=== PATIENT | male | born 1960 | race Caucasian/White ===

== ENCOUNTER → 2019-10-02 00:01 | Outpatient (RCR) | payer MEDICARE, SELFPAY | LOC: WOUND 10:22 | PROVIDERS: Family Provider Family Medicine; Visit Provider Thoracic Surgery (Cardiothoracic Vascular Surgery) | DX: I96 Gangrene, not elsewhere classified (principal); L89.324 Pressure ulcer of left buttock, stage 4 ==

== ENCOUNTER 2019-11-27 13:03 | Outpatient (RCR) | payer MEDICARE, SELFPAY | END 2019-12-01 23:59 | disposition home or self-care (01) | LOC: WOUND 13:03 | PROVIDERS: Family Provider Family Medicine; PCP Family Medicine; Visit Provider Thoracic Surgery (Cardiothoracic Vascular Surgery) | DX: I96 Gangrene, not elsewhere classified (principal); L89.324 Pressure ulcer of left buttock, stage 4 | CPT/HCPCS: 11042 ==

== ENCOUNTER 2019-12-25 13:04 | Outpatient (RCR) | payer MEDICARE, SELFPAY | END 2020-01-01 23:59 | disposition home or self-care (01) | LOC: WOUND 13:04 | PROVIDERS: Family Provider Family Medicine; PCP Family Medicine; Visit Provider Thoracic Surgery (Cardiothoracic Vascular Surgery) | DX: L89.324 Pressure ulcer of left buttock, stage 4 (principal) | CPT/HCPCS: 11042 ==

== ENCOUNTER 2020-01-22 15:16 | Outpatient (RCR) | payer MEDICARE, SELFPAY | END 2020-01-31 23:59 | disposition home or self-care (01) | LOC: WOUND 15:16 | PROVIDERS: Family Provider Family Medicine; PCP Family Medicine; Visit Provider Thoracic Surgery (Cardiothoracic Vascular Surgery) | DX: L89.324 Pressure ulcer of left buttock, stage 4 (principal) | CPT/HCPCS: 11042; A6446 ==

== ENCOUNTER 2020-02-17 18:58 | Inpatient (IN) | payer MEDICARE, SELFPAY ==
[2020-02-17 19:04] VITALS: BP 97/66; PULSE 104; RESP 24; TEMP 37.7; O2SAT 97; BMI 34.0
--- NOTE | 2020-02-17 19:13 | XR_ITS ---
WS: [id number] Portable AP upright chest, 02/17/2020 Clinical Data: Fever Comparison: Portable chest, 01/02/2019. Findings: No nodules, masses or effusions are seen. The heart is normal. The pulmonary vascularity is not increased. No pneumonia or pneumothorax is seen. The patient is had a posterior fusion of the lo wer cervical spine and upper thoracic spine from C6 through T6 with bilateral pedicle screws and conn ecting rods. There is also a plate in the lateral left clavicle attached with multiple orthopedic scr ews. XR/XR chest 1V portable [id number] Impression: Negative for acute cardiopulmonary disease.
--- NOTE | 2020-02-17 19:27 | ED_ITS ---
HPI - Fever General: Chief Complaint: Fever Stated Complaint: AMS, Fever Time Seen by Provider: 02/17/20 19:13 History of Present Illness: HPI Narrative: Mr. Howard is a 59-year-old male who comes in complaining of feeling chilled and having a fever at home. He has associated abdominal pain. The patient is a poor historian secondary to pain and what is believed to be probable septic process. He denies headache, neck pain, chest pain, shortness of breath, cough but is unaware about lower extremity problems as he is a paraplegic. He is able to answer some questions but when he does not have the answers for some he becomes frustrated and states that he does not know the answers. There is no family with him to get a history from. Further information is taken from old charts. Review of Systems General: Reports: Other (ROS unobtainable other than as listed in HPI.) PFS ED PFSH: Medical History Chronic retention of urine History of recurrent UTIs Neurogenic bladder Paraplegia, complete Suprapubic catheter Surgical History S/P repair of hydrocele Family History Mother , AT AGE 85 Hypertension Father , AT AGE 74 LEUKEMIA Leukemia Social History Smoking and tobacco status: unknown if ever smoked Alcohol intake: never Adopted: No Caregiver/support person: No Lives independently: No Household members: family Marital status: Current occupational status: disabled Physical Exam Const: COMMON NORMALS: no acute distress, no limitations, healthy appearing and well nourished EXAM LIMITATIONS: no altered mental status GENERAL APPEARANCE: cooperative, well kempt and well developed HENMT: COMMON NORMALS: normocephalic, atraumatic, hearing grossly normal bilaterally, external ears normal, EAC's normal, Normal external nose present and moist oral mucous membranes HEAD & SCALP: normal to inspection, normocephalic and atraumatic FACE & SINUS: normal facial exam and face symmetric NOSE: Normal external nose present and Normal nares present EXTERNAL EAR: Yes external ears normal EXTERNAL AUDITORY CANAL: EAC's normal MOUTH: Normal oral and palatal mucosa present, lip normal and tongue normal Eye: COMMON NORMALS: Equal, round and reactive pupils present, EOMs intact bilaterally, conjunctivae normal and no scleral icterus GENERAL EYE: appearance normal, both eyes and all related structures ALIGNMENT: Yes alignment normal PERIORBITAL: periorbital findings normal EYELID: eyelids normal CONJUNCTIVA: Yes conjunctivae normal SCLERA: sclerae normal PUPIL: Yes Equal, round and reactive pupils present Neck/C-Spine: COMMON NORMALS: full ROM, no lymphadenopathy, supple, no meningeal signs and no JVD GENERAL: Yes normal visual inspection and Yes trachea midline CERVICAL SPINE: Yes cervical ROM normal Chest: COMMONS NORMALS: normal inspection of the chest and normal palpation of entire chest wall Resp: COMMON NORMALS: normal respiratory effort, No retractions, No use of accessory muscles and clear to auscultation bilaterally EFFORT & INSPECTION: Yes able to speak in complete sentences AUSCULTATION: clear to auscultation bilaterally, no crackles, no rales, no rhonchi and no wheezes Cardio: COMMON NORMALS: no JVD, regular rate, regular rhythm, S1 normal heart sound present, S2 normal heart sound present, No gallops present (Cardio), No clicks present (Cardio), No murmurs present (Cardio) and No rub (Cardio) RATE: regular rate RHYTHM: regular rhythm HEART SOUNDS: S1 normal heart sound present, S2 normal heart sound present, no click, no gallops, no murmurs and no rubs GI: COMMON NORMALS: Soft to palpation, No hepatosplenomegaly present and no masses PALPATION: Yes Soft to palpation, No Guarding due to palpation present (GI), No Rigid due to palpation, Yes No hepatosplenomegaly present, No Hernia present, No Palpable mass present and No Pulsatile mass present : COMMON NORMALS: Yes no CVA tenderness BLADDER/KIDNEY EXAM: Yes no CVA tenderness Back/Pelvis: COMMON NORMALS: no CVA tenderness, thoracic and lumbar spine normal to inspection, no thoracic nor lumbar tenderness and thoraco-lumbar ROM normal Neuro: COMMON NORMALS: CN's II-XII intact bilaterally, moves all extremities, no focal motor deficits and no sensory deficits noted MENINGEAL SIGNS: Yes no meningeal signs SPEECH: speech normal Psych: APPEARANCE: Yes well kempt Skin: COMMON NORMALS: no rashes or lesions noted, turgor normal, no jaundice, no petechiae and no mottling GENERAL SKIN EXAM: no rashes or lesions noted and turgor normal Course Vital Signs: Vital signs: Vital Signs Temperature 103.1 F H 02/18/20 02:22 Pulse Rate 109 H 02/18/20 02:00 Respiratory Rate 9 L 02/18/20 02:00 Blood Pressure 143/90 02/18/20 02:00 Pulse Oximetry 95 02/18/20 02:00 MDM - Fever MDM Narrative: Medical decision making narrative: Mr. Howard comes in with abdominal pain as well as fever and chills. His CT scan shows evidence of pyelonephritis and his urinalysis confirms this. The patient has a septic encephalopathy. His vital signs have been stable. The case was endorsed to Dr. Diaz he agrees to admit for further evaluation and care. Lab Data: Attestation: I reviewed the patient's lab results. Labs: Lab Results 02/17/20 02/17/20 02/17/20 Range/Units 19:30 19:30 19:30 WBC 20.8 H (4.0-10.0) 10^3/ uL RBC 4.02 L (4.1-5.3) 10^6/u L Hgb 10.8 L (11.7-16.6) g/dL Hct 33.6 L (42.0-52.0) % MCV 83.6 (80-94) fL MCH 26.9 L (28.0-34.0) pg MCHC 32.1 (30.0-36.0) g/dL RDW 15.1 (12.1-15.1) % Plt Count 250 (130-400) 10^3/c mm MPV 10.2 (7.4-10.4) fL Neut % (Auto) 83.7 % Lymph % (Auto) 7.0 % [place] % (Auto) 7.9 % Eos % (Auto) 0.2 % Baso % (Auto) 0.2 % Neut # (Auto) 17.4 H (1.8-7.7) 10^3/u L Lymph # (Auto) 1.5 (0.8-4.8) 10^3/u L [place] # (Auto) 1.7 H (0.2-0.9) 10^3/u L Eos # (Auto) 0.1 (0.0-0.8) 10^3/u L Baso # (Auto) 0.1 (0.0-0.1) 10^3/u L Nucleated RBC % (a uto) 0 % Nucleated RBCs # 0.0 /100WBC Sodium 135 L (136-145) mmol/L Potassium 3.3 L (3.5-5.1) mmol/L Chloride 95 L (98-107) mmol/L Carbon Dioxide 23 (22-29) mmol/L Anion Gap 20.3 H (5-19) BUN 13 (8-23) mg/dL Creatinine 1.4 H (0.7-1.2) mg/dL GFR Calculation 51.7 L (90-130) mL/min Glucose 130 H (65-115) mg/dL Calculated Osmolal ity 278 L (285-295) mOsm/k g Lactic Acid 2.5 H (0.5-2.2) mmol/L Calcium 9.3 (8.5-10.5) mg/dL Magnesium 1.8 (1.7-2.3) mg/dL Total Bilirubin 0.5 (0.15-1.2) mg/dL AST 9 (0-40) U/L ALT 12 (0-41) U/L Alkaline Phosphata se 114 (40-130) IU/L Troponin T Baselin e (0-15) ng/mL Troponin T 120 Min [place] (0-15) ng/mL Delta Troponin T (0-10) ABS# Total Protein 7.3 (6.6-8.7) g/dL Albumin 3.8 (3.5-5.2) g/dL Globulin 3.5 (1.3-4.6) g/dL Lipase 10 L (13-60) U/L Urine Color (Yellow) Urine Appearance (CLEAR) Urine pH (5-7) Ur Specific Gravit y (1.005-1.030) Urine Protein (Negative) Urine Glucose (UA) (Normal) Urine Ketones (Negative) Urine Blood (Negative) Urine Nitrate (Negative) Urine Bilirubin (NEGATIVE) Urine Urobilinogen (Negative) mg/dL Ur Leukocyte Suri ase (Negative) Urine RBC (0-2) /hpf Urine WBC (0-5) /hpf Ur Squamous Epith Cells (0-5) Urine Bacteria (NONE) 02/17/20 02/17/20 02/17/20 Range/Units 19:30 21:15 21:20 WBC (4.0-10.0) 10^3/ uL RBC (4.1-5.3) 10^6/u L Hgb (11.7-16.6) g/dL Hct (42.0-52.0) % MCV (80-94) fL MCH (28.0-34.0) pg MCHC (30.0-36.0) g/dL RDW (12.1-15.1) % Plt Count (130-400) 10^3/c mm MPV (7.4-10.4) fL Neut % (Auto) % Lymph % (Auto) % [place] % (Auto) % Eos % (Auto) % Baso % (Auto) % Neut # (Auto) (1.8-7.7) 10^3/u L Lymph # (Auto) (0.8-4.8) 10^3/u L [place] # (Auto) (0.2-0.9) 10^3/u L Eos # (Auto) (0.0-0.8) 10^3/u L Baso # (Auto) (0.0-0.1) 10^3/u L Nucleated RBC % (a uto) % Nucleated RBCs # /100WBC Sodium (136-145) mmol/L Potassium (3.5-5.1) mmol/L Chloride (98-107) mmol/L Carbon Dioxide (22-29) mmol/L Anion Gap (5-19) BUN (8-23) mg/dL Creatinine (0.7-1.2) mg/dL GFR Calculation (90-130) mL/min Glucose (65-115) mg/dL Calculated Osmolal ity (285-295) mOsm/k g Lactic Acid (0.5-2.2) mmol/L Calcium (8.5-10.5) mg/dL Magnesium (1.7-2.3) mg/dL Total Bilirubin (0.15-1.2) mg/dL AST (0-40) U/L ALT (0-41) U/L Alkaline Phosphata se (40-130) IU/L Troponin T Baselin e 48 H (0-15) ng/mL Troponin T 120 Min [place] 45.39 H (0-15) ng/mL Delta Troponin T -2.61 L (0-10) ABS# Total Protein (6.6-8.7) g/dL Albumin (3.5-5.2) g/dL Globulin (1.3-4.6) g/dL Lipase (13-60) U/L Urine Color Yellow (Yellow) Urine Appearance Cloudy (CLEAR) Urine pH 7 (5-7) Ur Specific Gravit y 1.005 (1.005-1.030) Urine Protein 1+ H (Negative) Urine Glucose (UA) Norm (Normal) Urine Ketones Negative (Negative) Urine Blood 3+ H (Negative) Urine Nitrate Positive H (Negative) Urine Bilirubin Neg (NEGATIVE) Urine Urobilinogen Norm (Negative) mg/dL Ur Leukocyte Suri ase 2+ H (Negative) Urine RBC 15-25 H (0-2) /hpf Urine WBC Too numerous to c nt H (0-5) /hpf Ur Squamous Epith Cells 0-4 H (0-5) Urine Bacteria 2+ H (NONE) Imaging Data^: CXR: My impression: No acute cardiopulmonary findings. CT Abd/Pel: Radiologist's impression: [place] [address] CT Scan Report Signed Patient: Compa Howard Unit #: [id number] : 1960 Age/Sex: 59 / M ADM Date: 02/17/20 Loc: ER Room/Bed: Attending Dr: Ordering Provider/Ordering MD: Aylin Gallegos DO Date of Service: 02/17/20 Procedure(s): CT abdomen pelvis w con* [id number] Accession Number(s): [id number] Report Number: [id number] PROCEDURE INFORMATION: Exam: CT Abdomen And Pelvis With Contrast Exam date and time: 02/17/2020 8:02 PM Age: 59 years old Clinical indication: Abdominal pain; Generalized; Prior surgery; Surgery date: 6+ months; Surgery type: Suprapubic catheter; Patient HX: Paraplegic w neurogenic bladder C/O abd pain and fever TECHNIQUE: Imaging protocol: Computed tomography of the abdomen and pelvis with intravenous contrast. Radiation optimization: All CT scans at this facility use at least one of these dose optimization techniques: automated exposure control; mA and/or kV adjustment per patient size (includes targeted exams where dose is matched to clinical indication); or iterative reconstruction. Contrast material: VISI 320; Contrast volume: 95 ml; Contrast route: 20G; COMPARISON: CT abdomen pelvis w con* [id number] 12/29/2018 3:16 PM RADIATION DOSE METRICS: Total DLP: 1213.36 mGy-cm FINDINGS: Tubes, catheters and devices: Stable percutaneous suprapubic bladder catheter. Liver: Stable hepatic cysts at least one of which measures larger than a centimeter in size. Other low-attenuation lesions in the liver are too small to characterize. Gallbladder and bile ducts: Normal. No calcified stones. No ductal dilation. Pancreas: Normal. No ductal dilation. Spleen: Normal. No splenomegaly. Adrenals: Normal. No mass. Kidneys and ureters: Continued severe left renal atrophy. Mild right hydronephrosis with mild inflammation surrounding the right kidney and right ureter suggesting possible urinary tract infection. Stomach and bowel: Unremarkable. No obstruction. No mucosal thickening. Appendix: No evidence of appendicitis. Intraperitoneal space: Unremarkable. No free air. No significant fluid collection. Vasculature: Calcification of the abdominal aorta and/or iliac arteries consistent with atherosclerotic vessel disease. Lymph nodes: Unremarkable. No enlarged lymph nodes. Bladder: Prominent urinary bladder wall thickening which could be secondary to collapsed urinary bladder and/or neurogenic bladder however infectious cystitis cannot be ruled out. Reproductive: Unremarkable as visualized. Bones/joints: Unremarkable. No acute fracture. Soft tissues: Unremarkable. CT/CT abdomen pelvis w con* [id number] IMPRESSION: 1. Continued severe left renal atrophy. 2. Stable percutaneous suprapubic bladder catheter. 3. Mild right hydronephrosis with mild inflammation surrounding the right kidney and right ureter suggesting possible urinary tract infection. 4. Prominent urinary bladder wall thickening which could be secondary to collapsed urinary bladder and/or neurogenic bladder however infectious cystitis cannot be ruled out. Radiation Dose CTDIVOL = (mGy): DLP = 1213.36 (mGy-cm) Dictated By: Ronald Mayo MD Signed By: Ronald Mayo MD Signed Date/Time: 02/17/202113 DD/ 12 EKG Data^: EKG 1: Attestation: I personally reviewed and interpreted this EKG as follows: EKG interpretation date: 02/17/20 EKG interpretation time: 19:41 Interpretation: Sinus tachycardia 107 beats a minute, normal axis, no acute ST-T wave changes EKG 2: Attestation: I personally reviewed and interpreted this EKG as follows: EKG interpretation date: 02/17/20 EKG interpretation time: 21:14 Interpretation: Sinus tachycardia with a rate of 117, no acute ST or T wave changes. Discharge Plan Discharge Patient Disposition: Admitted As Inpatient Admit Provider: Jose G Ferrari Clinical Impression: Sepsis, Acute pyelonephritis Condition: Stable Interventions: ED Discharge Assessment Last Done: 02/18/20 01:21 ED Charges Last Done: 02/18/20 01:23 Discharge Date/Time: 02/18/20 01:44 Coding Level of Care Code ED Cash Register Balancer for Chg Fwd Exam Comprehensive
--- NOTE | 2020-02-17 19:29 | ECG_ITS ---
Measurements Intervals [place] Rate: 117 P: 15 NE: 127 QRS: 57 QRSD: 96 T: -18 QT: 340 QTc: [address] & T-WAVE ABNORMALITY Compared to ECG 12/29/2018 18:05:32 T-wave abnormality now present Electronically Signed On 02-18-2020 19:51:57 CDT by Jocelin Yadav M.D. [id number]
[2020-02-17 19:38] LABS: Basophils # 0.1 10^3/uL (0.0-0.1); Basophils % 0.2 %; Eosinophils # 0.1 10^3/uL (0.0-0.8); Eosinophils % 0.2 %; Hematocrit 33.6 % (42.0-52.0); Hemoglobin 10.8 g/dL (11.7-16.6); Lymphocytes # 1.5 10^3/uL (0.8-4.8); Mean Corpuscular HGB Conc 32.1 g/dL (30.0-36.0); Mean Corpuscular Hemoglobin 26.9 pg (28.0-34.0); Mean Corpuscular Volume 83.6 fL (80-94); Mean Platelet Volume 10.2 fL (7.4-10.4); Monocytes # 1.7 10^3/uL (0.2-0.9); Monocytes % 7.9 %; Neutrophils # 17.4 10^3/uL (1.8-7.7); Neutrophils % 83.7 %; Nucleated Red Blood Cells % 0 %; Platelet Count 250 10^3/cmm (130-400); Red Blood Count 4.02 10^6/uL (4.1-5.3); Red Cell Distribution Width 15.1 % (12.1-15.1); White Blood Count 20.8 10^3/uL (4.0-10.0)
[2020-02-17 20:03] LABS: Alanine Aminotransferase 12 U/L (0-41); Albumin Level 3.8 g/dL (3.5-5.2); Alkaline Phosphatase 114 IU/L (40-130); Anion Gap 20.3 (5-19); Aspartate Amino Transferase 9 U/L (0-40); Blood Urea Nitrogen 13 mg/dL (8-23); Calcium 9.3 mg/dL (8.5-10.5); Carbon Dioxide 23 mmol/L (22-29); Chloride 95 mmol/L (98-107); Globulin 3.5 g/dL (1.3-4.6); Glomerular Filtration Rate 51.7 mL/min (90-130); Glucose 130 mg/dL (65-115); Lipase 10 U/L (13-60); Magnesium 1.8 mg/dL (1.7-2.3); Osmolality Calculated 278 mOsm/kg (285-295); Potassium 3.3 mmol/L (3.5-5.1); Sodium 135 mmol/L (136-145); Total Bilirubin 0.5 mg/dL (0.15-1.2); Total Protein 7.3 g/dL (6.6-8.7)
[2020-02-17 20:04] LABS: Lactic Sepsis W/Reflex 2.5 mmol/L (0.5-2.2)
[2020-02-17 20:05] LABS: Troponin(5th) Baseline 48 ng/mL (0-15)
[2020-02-17 20:25] VITALS: TEMP 38.8
[2020-02-17] MEDS: iodixanol 320 mg/mL 100mL Btl IV (20:56)
[2020-02-17 21:00] VITALS: BP 163/93; PULSE 94; RESP 16; O2SAT 98
[2020-02-17 21:20] LABS: Reflex Lactate Order REFLEX LACTIC ORDERD
--- NOTE | 2020-02-17 21:29 | ECG_ITS ---
Measurements Intervals [place] Rate: 107 P: -4 OR: 136 QRS: 37 QRSD: 89 T: 18 QT: 328 QTc: 439 SINUS TACHYCARDIA NONSPECIFIC T-WAVE ABNORMALITY Compared to ECG 12/29/2018 18:05:32 T-wave abnormality now present Electronically Signed On 02-18-2020 20:22:25 CDT by Jocelin Yadav M.D. [id number]
[2020-02-17 21:54] LABS: Troponin 5 2HR 45.39 ng/mL (0-15)
[2020-02-17 22:04] LABS: Bilirubin Urine Neg (NEGATIVE); Blood Urine 3+ (Negative); Glucose Urine UA Norm (Normal); Ketones Urine Negative (Negative); Leukocyte Esterase Urine 2+ (Negative); Nitrate Urine Positive (Negative); Protein Urine 1+ (Negative); Specific Gravity, Urine 1.005 (1.005-1.030); Urine Appearance Cloudy (CLEAR); Urine Color Yellow (Yellow); Urobilinogen Urine Norm (Negative); pH Urine 7 (5-7)
[2020-02-17 22:05] LABS: Bacteria Urine 2+; RBC Urine 15-25 /hpf (0-2); Squamous Epithelial Cell Urine 0-4 (0-5); WBC Urine TOO NUMEROUS TO CNT /hpf (0-5)
[2020-02-17 22:06] LABS: Troponin 5 2HR Delta -2.61 ABS# (0-10)
[2020-02-17 22:06] LABS: Add Urine Culture? No
[2020-02-17 22:12] VITALS: BP 158/83; PULSE 92; RESP 16; O2SAT 98
--- NOTE | 2020-02-17 22:19 | P.HP_ITS ---
Providers/Chief Complaint Primary Care Provider: Jennifer Patel MD Chief Complaint: fever History of Present Illness Compa Howard is a 59 year old male with history of paraplegia, neurogenic bladder, chronic suprapubic catheter, previous UTIs, as well as diabetes, hypertension, chronic kidney disease, GERD, chronic pain syndrome who presented to emergency room due to fever and chills. The patient is confused on presentation and is unable to provide a lot of details. It is unknown when did symptoms started. He reported some abdominal discomfort. CT of the abdomen shows left sided pyelonephritis and possible cystitis. UA came back positive for UTI. No chest pain, shortness of breath, cough, nausea or vomiting, diar linda. The patient met criteria for sepsis. He received IV fluid bolus. Received Rocephin. Review of Systems General: Reports: 10 or more systems reviewed and unremarkable except in HPI and below Medications/Allergies Home Medications Medication Instructions Recorded Confirmed Last Taken Type ascorbate calcium (vitamin C) 500 500 mg PO BID 10/29/19 01/29/20 Unknown History mg tablet gabapentin 600 mg tablet 600 mg PO QDAY tab 10/29/19 01/29/20 Unknown History gabapentin 800 mg tablet 800 mg PO TID 10/29/19 01/29/20 Unknown History metoprolol tartrate 50 mg tablet 50 mg PO BID 10/29/19 01/29/20 Unknown History oxybutynin chloride 10 mg 10 mg PO QDAY 10/29/19 01/29/20 Unknown History tablet,extended release 24 hr potassium chloride 10 mEq See Rx Instructions PO BID 10/29/19 01/29/20 Unknown History capsule,extended release venlafaxine 75 mg capsule,extended 75 mg PO QDAY 10/29/19 01/29/20 Unknown History release 24 hr methenamine hippurate 1 gram tablet 1 gm PO BID #60 tab 11/09/19 01/29/20 Unknown Rx metformin 500 mg tablet 500 mg PO BID #180 tab 12/18/19 01/29/20 Unknown Rx pantoprazole 40 mg tablet,delayed 40 mg PO DAILY #30 tab 12/18/19 01/29/20 Unknown Rx release baclofen 10 mg tablet 10 mg PO QID #120 tab 01/17/20 01/29/20 Unknown Rx glipizide 10 mg tablet, extended 10 mg PO DAILY #30 tab 01/23/20 01/29/20 Unknown Rx release 24 hr amlodipine 5 mg tablet 5 mg PO QDAY #30 tab 01/28/20 01/29/20 Unknown Rx atorvastatin 80 mg tablet 80 mg PO QDAY #30 tab 01/28/20 01/29/20 Unknown Rx fluticasone propionate 50 2 spray INTRANASAL DAILY #9.9 ml 01/28/20 01/29/20 Unknown Rx mcg/actuation nasal spray,suspension magnesium L-lactate 84 mg 84 mg PO BID 01/28/20 01/29/20 Unknown History tablet,extended release venlafaxine 150 mg 150 mg PO QDAY #30 cap 01/28/20 01/29/20 Unknown Rx capsule,extended release 24 hr cefdinir 300 mg capsule 300 mg PO BID #20 cap 01/29/20 01/29/20 Unknown Rx meclizine 25 mg tablet 25 mg PO TID PRN #30 tab 01/29/20 01/29/20 Unknown Rx Allergies Allergy/AdvReac Type Severity Reaction Status Date / Time Sulfa (Sulfonamide Allergy Unknown Verified 01/29/20 13:31 Antibiotics) PFSH Acute PFSH: Medical History Chronic retention of urine History of recurrent UTIs Neurogenic bladder Paraplegia, complete Suprapubic catheter Surgical History S/P repair of hydrocele Family History Mother , AT AGE 85 Hypertension Father , AT AGE 74 LEUKEMIA Leukemia Social History Smoking and tobacco status: unknown if ever smoked Alcohol intake: never Adopted: No Caregiver/support person: No Lives independently: No Household members: family Marital status: Current occupational status: disabled Vitals/I&O/Wt Last Vital Signs Temp 101.9 F H 02/17/20 20:25 Pulse 94 02/17/20 21:00 Resp 16 02/17/20 21:00 BP 163/93 02/17/20 21:00 Pulse Ox 98 02/17/20 21:00 Weight last 48 hrs Weight 104.326 kg Physical Exam Narrative: EXAM NARRATIVE: The patient is confused and lethargic. Mild distress. He opens his eyes for short period of time. Follows simple instructions. His answers are mostly yes or no. Skin is warm and dry. Dry mucous membranes Eyes PERRLA, extraocular muscle intact. Neck is supple. No JVD Lungs no respiratory distress. Clear bilaterally. Heart S1, S2, regular tachycardia Abdomen is soft, nontender, bowel sounds are present. No guarding. Suprapubic catheter is in place. There is no redness or discharge in the area of insertion. Extremities bilateral pedal edema mild. No cyanosis or calf tenderness bilater ally. Urinary Catheter Management^: Suprapubic: Cath Placed During This Visit: no Reason for Continuing Indwelling Catheter: Chronic Indwelling Urinary Catheter on Admission Data : 02/17/20 19:30 02/17/20 19: Other Labs: Laboratory Results WBC 20.8 10^3/uL (4.0-10.0) H 02/17/20 19:30 RBC 4.02 10^6/uL (4.1-5.3) L 02/17/20 19: Hgb 10.8 g/dL (11.7-16.6) L 02/17/20 19:30 Hct 33.6 % (42.0-52.0) L 02/17/20 19:30 MCV 83.6 fL (80-94) 02/17/20 19: MCH 26.9 pg (28.0-34.0) L 02/17/20 19:30 MCHC 32.1 g/dL (30.0-36.0) 02/17/20 19: RDW 15.1 % (12.1-15.1) 02/17/20 19: Plt Count 250 10^3/cmm (130-400) 02/17/20 19:30 MPV 10.2 fL (7.4-10.4) 02/17/20 19: Neut % (Auto) 83.7 % 02/17/20 19: Lymph % (Auto) 7.0 % 02/17/20 19:30 [place] % (Auto) 7.9 % 02/17/20 19:30 Eos % (Auto) 0.2 % 02/17/20 19:30 Baso % (Auto) 0.2 % 02/17/20: Neut # (Auto) 17.4 10^3/uL (1.8-7.7) H 02/17/20 19:30 Lymph # (Auto) 1.5 10^3/uL (0.8-4.8) 02/17/20 19:30 [place] # (Auto) 1.7 10^3/uL (0.2-0.9) H 02/17/20 19:30 Eos # (Auto) 0.1 10^3/uL (0.0-0.8) 02/17/20 19:30 Baso # (Auto) 0.1 10^3/uL (0.0-0.1) 02/17/20 19:30 Nucleated RBC % (auto) 0 % 02/17/20 19: Nucleated RBCs # 0.0 /100WBC 02/17/20 19:30 Sodium 135 mmol/L (136-145) L 02/17/20 19:30 Potassium 3.3 mmol/L (3.5-5.1) L 02/17/20 19:30 Chloride 95 mmol/L (98-107) L 02/17/20 19:30 Carbon Dioxide 23 mmol/L (22-29) 02/17/20 19:30 Anion Gap 20.3 (5-19) H 02/17/20 19:30 BUN 13 mg/dL (8-23) 02/17/20 19:30 Creatinine 1.4 mg/dL (0.7-1.2) H 02/17/20 19:30 GFR Calculation 51.7 mL/min (90-130) L 02/17/20 19:30 Glucose 130 mg/dL (65-115) H 02/17/20 19:30 Calculated Osmolality 278 mOsm/kg (285-295) L 02/17/20 19:30 Lactic Acid 2.5 mmol/L (0.5-2.2) H 02/17/20 19:30 Calcium 9.3 mg/dL (8.5-10.5) 02/17/20 19:30 Magnesium 1.8 mg/dL (1.7-2.3) 02/17/20 19:30 Total Bilirubin 0.5 mg/dL (0.15-1.2) 02/17/20 19:30 AST 9 U/L (0-40) 02/17/20 19:30 ALT 12 U/L (0-41) 02/17/20 19:30 Alkaline Phosphatase 114 IU/L (40-130) 02/17/20 19:30 Troponin T Baseline 48 ng/mL (0-15) H 02/17/20 19:30 Troponin T 120 Minute 45.39 ng/mL (0-15) H 02/17/20 21:20 Delta Troponin T -2.61 ABS# (0-10) L 02/17/20 21:20 Total Protein 7.3 g/dL (6.6-8.7) 02/17/20 19:30 Albumin 3.8 g/dL (3.5-5.2) 02/17/20 19:30 Globulin 3.5 g/dL (1.3-4.6) 02/17/20 19:30 Lipase 10 U/L (13-60) L 02/17/20 19:30 Urine Color Yellow (Yellow) 02/17/20 21:15 Urine Appearance Cloudy (CLEAR) 02/17/20 21:15 Urine pH 7 (5-7) 02/17/20 21:15 Ur Specific [place] 1.005 (1.005-1.030) 02/17/20 21:15 Urine Protein 1+ (Negative) H 02/17/20 21:15 Urine Glucose (UA) Norm (Normal) 02/17/20 21:15 Urine Ketones Negative (Negative) 02/17/20 21:15 Urine Blood 3+ (Negative) H 02/17/20 21:15 Urine Nitrate Positive (Negative) H 02/17/20 21:15 Urine Bilirubin Neg (NEGATIVE) 02/17/20 21:15 Urine Urobilinogen Norm mg/dL (Negative) 02/17/20 21:15 Ur Leukocyte Esterase 2+ (Negative) H 02/17/20 21:15 Urine RBC 15-25 /hpf (0-2) H 02/17/20 21:15 Urine WBC Too numerous to cnt /hpf (0-5) H 02/17/20 21:15 Ur Squamous Epith Cells 0-4 (0-5) H 02/17/20 21:15 Urine Bacteria 2+ (NONE) H 02/17/20 21:15 Impressions Abdomen/Pelvis CT 02/17/20 19:28 IMPRESSION: 1. Continued severe left renal atrophy. 2. Stable percutaneous suprapubic bladder catheter. 3. Mild right hydronephrosis with mild inflammation surrounding the right kidney and right ureter suggesting possible urinary tract infection. 4. Prominent urinary bladder wall thickening which could be secondary to collapsed urinary bladder and/or neurogenic bladder however infectious cystitis cannot be ruled out. Radiation Dose CTDIVOL = (mGy): DLP = 1213.36 (mGy-cm) Micro: Microbiology 02/17/20 19:31 Blood Culture - Preliminary Blood SPECIMEN COLLECTED 02/17/20 19:30 Blood Culture - Preliminary Blood SPECIMEN COLLECTED A&P Additional A&P Information 59-year-old male with past medical history of paraplegia, neurogenic bladder, chronic suprapubic catheter, previous episodes of UTI, diabetes, hypertension, chronic pain syndrome, GERD, chronic kidney disease who presented to emergency room due to fever, chills, confusion. Sepsis secondary to pyelonephritis and cystitis. Will be admitted to ICU. Received Rocephin. I will switch him to Zosyn. We will wait for the culture results. We will continue IV fluids. Acute metabolic encephalopathy secondary to above. Close monitoring. N.p.o. for now. Aspiration precautions. Hypokalemia. Will replace IV and recheck in the morning. Chronic kidney disease. Will monitor renal function. Anemia probably secondary to chronic disease. Continue monitoring. Currently stable. History of GERD. Ordering famotidine twice daily IV. DVT prophylaxis. Lovenox. Attestations Medical Necessity Statement*: Based on my assessment of patient's condition and findings I expect that the patient will spend more than 2 midnights in the hospital. 55 minutes spent on this encounter. Critical care time. Coding Level of Care Code Acute Category Planner for Layne Stovall
[2020-02-17] MEDS: sodium chloride 0.9% 1,000 ML 999 ML IV (22:27)
[2020-02-17] MEDS: cefTRIAXone 1,000 MG in sodium chloride 0.9% (plus) 50 ML 100 MG IV (22:31)
[2020-02-17] MEDS: piperacillin-tazobactam 3.375 GM in sodium chloride 0.9% (plus) 50 ML IV (23:17)
[2020-02-17] MEDS: famotidine 20 mg/2 mL INJ IVP (23:17)
[2020-02-17] MEDS: enoxaparin 40 mg/0.4 mL Syringe SUBCUT (23:18)
[2020-02-17] MEDS: sodium chlor 0.9% + KCl 20 mEq 20 MEQ/1,000 ML BAG 125 MEQ IV (23:21)
[2020-02-18] VITALS (54 sets, daily range): BP systolic 130–193; BP diastolic 59–126; PULSE 84–124; RESP 3–28; TEMP 36.9–39.5; O2SAT 93–977; BMI 34.0
--- NOTE | 2020-02-18 01:29 | ECG_ITS ---
Measurements Intervals [place] Rate: 98 P: -8 [place]: 137 QRS: 21 QRSD: 101 T: -18 QT: 362 QTc: 464 SINUS RHYTHM NONSPECIFIC T-WAVE ABNORMALITY WARNING: DATA QUALITY MAY AFFECT INTERPRETATION Compared to ECG 12/29/2018 18:05:32 T-wave abnormality now present Sinus tachycardia no longer present Electronically Signed On 02-18-2020 20:20:35 CDT by Jocelin Yadav M.D. [id number]
[2020-02-18 02:06] LABS: Troponin 5 6HR 41.85 ng/mL (0-15)
[2020-02-18] MEDS: ondansetron 2 mg/ML SDV 2 mL 4 MG IVP (02:11)
[2020-02-18] MEDS: acetaminophen 325 mg Tablet 650 MG PO ×2 (02:19→08:34)
[2020-02-18] MEDS: TRAMadol 50 mg Tablet PO ×2 (02:19→08:35)
[2020-02-18] MEDS: morphine 4 mg/mL SDV 1 mL 2 MG IVP ×6 (03:01→19:12)
[2020-02-18 05:04] LABS: Basophils # 0.1 10^3/uL (0.0-0.1); Basophils % 0.3 %; Eosinophils % 0.2 %; Hematocrit 29.4 % (42.0-52.0); Hemoglobin 9.7 g/dL (11.7-16.6); Lymphocytes # 1.2 10^3/uL (0.8-4.8); Lymphocytes % 6.9 %; Mean Corpuscular Hemoglobin 27.1 pg (28.0-34.0); Mean Corpuscular Volume 82.1 fL (80-94); Mean Platelet Volume 11.1 fL (7.4-10.4); Monocytes # 1.9 10^3/uL (0.2-0.9); Monocytes % 10.5 %; Neutrophils # 14.4 10^3/uL (1.8-7.7); Neutrophils % 81.3 %; Nucleated Red Blood Cells % 0 %; Platelet Count 235 10^3/cmm (130-400); Red Blood Count 3.58 10^6/uL (4.1-5.3); Red Cell Distribution Width 14.9 % (12.1-15.1); White Blood Count 17.7 10^3/uL (4.0-10.0)
[2020-02-18 05:23] LABS: Anion Gap 17.9 (5-19); Blood Urea Nitrogen 11 mg/dL (8-23); Calcium 8.8 mg/dL (8.5-10.5); Carbon Dioxide 21 mmol/L (22-29); Chloride 103 mmol/L (98-107); Glomerular Filtration Rate 68.3 mL/min (90-130); Glucose 168 mg/dL (65-115); Magnesium 1.7 mg/dL (1.7-2.3); Osmolality Calculated 288 mOsm/kg (285-295); Sodium 139 mmol/L (136-145)
[2020-02-18 05:27] LABS: Glucose Point of Care 173 mg/dL (70-110)
[2020-02-18] MEDS: sodium chloride 0.9% 1,000 ML 100 ML IV ×2 (05:52→16:29)
[2020-02-18 05:55] LABS: Potassium 2.9 mmol/L (3.5-5.1)
[2020-02-18] MEDS: lidocaine 2% INJ 20 mL 5 ML INJECTION (06:18)
[2020-02-18] MEDS: piperacillin-tazobactam 3.375 GM in sodium chloride 0.9% (plus) 50 ML IV ×3 (06:18→22:41)
[2020-02-18] MEDS: potassium chloride premix 40 MEQ/100 ML PREMIX 25 MEQ IV (06:19)
[2020-02-18] MEDS: magnesium sulfate premix 2 GM/50 ML PIGGYBACK IV (06:19)
[2020-02-18] MEDS: sodium chlor 0.9% + KCl 20 mEq 20 MEQ/1,000 ML BAG 125 MEQ IV ×3 (07:38→23:44)
--- NOTE | 2020-02-18 10:33 | P.PN_ITS ---
Subjective Subjective: Interval history: Chart reviewed, AM labs noted including decreased leukocytosis, drop in hemoglobin. Noted to be febrile overnight with a T-max of 103.1F, currently has a low-grade temp of 99.9 F, otherwise hemodynamically stable, on room air. Hypokalemia noted, replacement ongoing. Easily arousable, resting in bed, confused. Medications: Reviewed: Yes Medication Review Details: Active Medications Generic Name Dose Route Start Last Admin Trade Name Freq PRN Reason Stop Dose Admin Acetaminophen 650 mg 02/18/20 02:04 02/18/20 08:34 Tylenol PO 650 mg Q6H PRN Administration MILD PAIN Dextrose 25 ml 02/17/20 22:12 D50w IVP ONCE PRN hypoglycemia prot ocol Protocol Dextrose 50 ml 02/17/20 22:12 D50w IVP PRN PRN hypoglycemia prot ocol Protocol Enoxaparin Sodium 40 mg 02/17/20 22:15 02/17/20 23:18 Lovenox SUBCUT 40 mg Q24H DREAD Administration Famotidine 20 mg 02/17/20 22:15 02/17/20 23:17 Pepcid Inj IVP 20 mg Q12H DREAD Administration Glucagon 1 mg 02/17/20 22:12 Glucagen IM ONCE PRN Adult Acute Hypog lycemia Prot. Protocol Sodium Chloride 1,000 mls @ 100 m ls/hr 02/17/20 19:15 02/18/20 05:52 Sodium Chloride 0.9% IV 100 mls/hr .Q10H DREAD Administration Potassium Chloride /Sodium Chloride 20 meq in 1,000 m ls @ 125 mls/hr 02/17/20 22:15 02/18/20 07:38 Sodium Chlor 0.9 % + Kcl 20 Meq IV 125 mls/hr .Q8H DREAD Administration Piperacillin Sod/T azobactam 50 mls @ 12.5 mls /hr 02/17/20 22:15 02/18/20 06:18 Sod 3.375 gm/ So dium Chloride IV 12.5 mls/hr Q8H DREAD Administration Protocol Dextrose 500 mls @ 100 mls /hr 02/17/20 22:12 D5w IV ONCE PRN Adult Acute Hypog lycemia Prot Protocol Insulin Aspart 0 unit 02/17/20 22:15 02/18/20 05:17 Novolog SUBCUT 2 unit Q6H DREAD Administration Protocol Morphine Sulfate 2 mg 02/18/20 04:59 02/18/20 09:30 Morphine IVP 2 mg Q3H PRN Administration SEVERE PAIN Ondansetron HCl 4 mg 02/17/20 22:12 02/18/20 02:11 Zofran IVP 4 mg Q6H PRN Administration NAUSEA AND VOMITI NG Tramadol HCl 50 mg 02/18/20 02:05 02/18/20 08:35 Ultram PO 50 mg Q6H PRN Administration MODERATE PAIN Sulfa (Sulfonamide Antibiotics) Allergy (Verified 01/29/20 13:31) Unknown Vitals/I&O/Wt Last Vital Signs Temp 99.9 F H 02/18/20 10:00 Pulse 93 02/18/20 10:00 Resp 12 02/18/20 10:00 BP 130/62 02/18/20 10:00 Pulse Ox 93 02/18/20 10:00 02/17/20 02/18/20 02/18/20 22:59 06:59 14:59 Intake Total 4809.8 / 4809.8 1000 / 1000 Output Total 1800 / 1800 Balance 3009.8 / 3009.8 1000 / 1000 Weight last 48 hrs Weight 104.326 kg Weight 104.326 kg Physical Exam Const: COMMON NORMALS: no acute distress and alert GENERAL APPEARANCE: cooperative and comfortable NUTRITIONAL APPEARANCE: obese morbidly obese ORIENTATION/CONSCIOUSNESS: Yes awake and Yes confused HENMT: COMMON NORMALS: normocephalic, atraumatic, hearing grossly normal bilaterally and moist oral mucous membranes HEAD & SCALP: normocephalic and atraumatic Eye: COMMON NORMALS: Equal, round and reactive pupils present, EOMs intact bilaterally and conjunctivae normal CONJUNCTIVA: Yes conjunctivae normal PUPIL: Yes Equal, round and reactive pupils present Neck/C-Spine: COMMON NORMALS: full ROM GENERAL: Yes normal visual inspection and Yes trachea midline Resp: COMMON NORMALS: normal respiratory effort, No retractions, No use of accessory muscles and clear to auscultation bilaterally EFFORT & INSPECTION: Yes able to speak in complete sentences, Yes symmetric chest movement and No tachypneic AUSCULTATION: clear to auscultation bilaterally Cardio: COMMON NORMALS: regular rate, regular rhythm, S1 normal heart sound present, S2 normal heart sound present and No murmurs present (Cardio) RATE: regular rate RHYTHM: regular rhythm HEART SOUNDS: S1 normal heart sound present and S2 normal heart sound present GI: COMMON NORMALS: Normal to inspection, nondistended, normoactive bowel sounds present, Soft to palpation and non-tender INSPECTION: Yes central obesity PALPATION: Yes Soft to palpation Extremity: COMMON NORMALS: normal to inspection, no clubbing, cyanosis or edema and no pedal edema OTHER: -paraplegic Neuro: COMMON NORMALS: moves all extremities, no focal motor deficits and no sensory deficits noted SENSORIUM/ORIENTATION: Yes alert GAIT: Yes Other gait observations present (paraplegic) Psych: COMMON NORMALS: Normal thought process present, cooperative, normal affect and speech normal SPEECH: Yes normal speech THOUGHT PROCESS: Normal thought process present Skin: COMMON NORMALS: no rashes or lesions noted, no jaundice, no petechiae and no mottling GENERAL SKIN EXAM: no rashes or lesions noted Urinary Catheter Management^: Suprapubic: Cath Placed During This Visit: no Reason for Continuing Indwelling Catheter: Chronic Indwelling Urinary Catheter on Admission Data : 02/18/20 04:30 02/18/20 04:30 Micro: Microbiology 02/17/20 19:31 Blood Culture - Preliminary Blood SPECIMEN COLLECTED 02/17/20 19:30 Blood Culture - Preliminary Blood SPECIMEN COLLECTED A&P Assessment and plan (1) Acute pyelonephritis: -UA strongly indicative of infection -Noted evidence of mild right hydronephrosis with mild inflammation as well as prominent urinary bladder wall thickening on imaging -Has chronic suprapubic bladder catheter secondary to neurogenic bladder -Associated sepsis as noted below -Follow-up blood culture, urine culture -Noted to be febrile overnight with a T-max of 103.1F, low-grade temp currently at 99.9; was tachycardic as well though heart rate currently within normal limits, normotensive. Continue to monitor vital signs -Continue Zosyn; received Ceftriaxone in ED Status: Acute (2) Sepsis: -Secondary to pyelonephritis, as evidenced by leukocytosis, lactic acidosis, tachycardia, fever Status: Acute Qualifiers: Sepsis acute organ dysfunction status: unspecified Sepsis type: sepsis due to unspecified organism Qualified Code(s): A41.9 - Sepsis, unspecified organism (3) Encephalopathy acute: -Likely secondary to acute pyelonephritis with associated sepsis -Reorient as needed, may require sitter for safety Status: Acute (4) Paraplegia, complete: -Fall precautions -WC-bound at baseline Status: Chronic (5) Neurogenic bladder: -Has suprapubic catheter; last changed on 01/23/[address] Bauer -Follows up with Dr. Bauer Status: Chronic Additional A&P Information -HTN; currently normotensive -NIDDM type II, A1c at goal (< 7, 07/2019); on ISS, Accucheks, hypoglycemia precautions -GERD; on famotidine -Anxiety -Morbid obesity: BMI-34 kg/m2 -Hyperlipidemia -Chronic pain; pain control as needed -DVT ppx with Lovenox -NPO currently due to confusion -Dispo: home -Code status: FULL code -continue ICU care due to sepsis, acute encephalopathy Attestations Medical Necessity Statement*: Patient requires hospitalization for continued management of acute pyelonephritis, on broad-spectrum IV antibiotics and IV fluid hydration. Time Spent in Patient Care: Greater than 35 minutes (>than 50% of time spent in counselling and/or direct pt care on unit) . Coding Level of Care Code Acute Horseradish Grinder for g Fwd Exam Comprehensive Diagnoses Acute pyelonephritis N10 Sepsis A41.9 Sepsis acute organ dysfunction status: unspecified Sepsis type: sepsis due to unspecified organism Encephalopathy acute G93.40 Paraplegia, complete G82.21 Neurogenic bladder N31.9
[2020-02-18 12:47] LABS: Glucose Point of Care 157 mg/dL (70-110)
[2020-02-18] MEDS: famotidine 20 mg/2 mL INJ IVP ×2 (14:00→22:41)
[2020-02-18 14:12] LABS: Glucose Point of Care 137 mg/dL (70-110)
[2020-02-18 16:30] LABS: Glucose Point of Care 119 mg/dL (70-110)
[2020-02-18 21:48] LABS: Glucose Point of Care 107 mg/dL (70-110)
[2020-02-18] MEDS: enoxaparin 40 mg/0.4 mL Syringe SUBCUT (22:42)
[2020-02-19] VITALS (24 sets, daily range): BP systolic 152–177; BP diastolic 75–103; PULSE 79–111; RESP 9–36; TEMP 36.4–37.4; O2SAT 94–97
[2020-02-19] MEDS: morphine 4 mg/mL SDV 1 mL 2 MG IVP (00:56)
--- NOTE | 2020-02-19 02:06 | PC.NURSE ---
Per order by 400 ml of water flush preformed by nurse at 2000 on 02/17 and at 0200 on 02/18. patient tolerated well. vital signs stable. will continue to monitor.
--- NOTE | 2020-02-19 04:12 | PC.NURSE ---
patient blood pressure noted to be increasingly higher throughout the night. spoke with about patients home medication list. verbal order for amlodipoine mg PO daily to help with high blood pressure. vital sign stable. will continue to monitor.
[2020-02-19] MEDS: amlodipine 5 mg Tablet PO ×2 (04:17→10:03)
[2020-02-19 04:27] LABS: Glucose Point of Care 99 mg/dL (70-110)
[2020-02-19 05:38] LABS: Basophils # 0.1 10^3/uL (0.0-0.1); Basophils % 0.6 %; Eosinophils % 0.2 %; Hematocrit 30.4 % (42.0-52.0); Hemoglobin 9.7 g/dL (11.7-16.6); Lymphocytes # 1.7 10^3/uL (0.8-4.8); Lymphocytes % 11.5 %; Mean Corpuscular HGB Conc 31.9 g/dL (30.0-36.0); Mean Corpuscular Hemoglobin 26.4 pg (28.0-34.0); Mean Corpuscular Volume 82.6 fL (80-94); Mean Platelet Volume 11.2 fL (7.4-10.4); Monocytes # 1.9 10^3/uL (0.2-0.9); Neutrophils # 10.8 10^3/uL (1.8-7.7); Neutrophils % 73.9 %; Nucleated Red Blood Cells % 0 %; Platelet Count 249 10^3/cmm (130-400); Red Blood Count 3.68 10^6/uL (4.1-5.3); White Blood Count 14.6 10^3/uL (4.0-10.0)
[2020-02-19 06:04] LABS: Anion Gap 17.1 (5-19); Blood Urea Nitrogen 8 mg/dL (8-23); Carbon Dioxide 21 mmol/L (22-29); Chloride 104 mmol/L (98-107); Glomerular Filtration Rate 76.2 mL/min (90-130); Glucose 97 mg/dL (65-115); Osmolality Calculated 284 mOsm/kg (285-295); Potassium 3.1 mmol/L (3.5-5.1); Sodium 139 mmol/L (136-145)
[2020-02-19] MEDS: piperacillin-tazobactam 3.375 GM in sodium chloride 0.9% (plus) 50 ML IV ×3 (06:15→21:33)
[2020-02-19] MEDS: sodium chlor 0.9% + KCl 20 mEq 20 MEQ/1,000 ML BAG 125 MEQ IV ×2 (07:20→13:52)
[2020-02-19 07:46] LABS: Glucose Point of Care 117 mg/dL (70-110)
[2020-02-19] MEDS: famotidine 20 mg/2 mL INJ IVP (10:02)
[2020-02-19 10:11] LABS: Glucose Point of Care 191 mg/dL (70-110)
--- NOTE | 2020-02-19 12:49 | P.PN_ITS ---
Subjective Subjective: Interval history: AM labs noted with decreased leukocytosis, stable hemoglobin, low K. Had 1900 mL urine output overnight. Afebrile overnight, hemodynamically stable. Patient seen and examined, alert and oriented x3, feels much better, conversant and appropriate. No acute overnight events reported. Has been voiding very well. Reports that he has his suprapubic catheter changed once monthly and is scheduled for next change by Dr. Bauer next week. Will transfer to floor for continued care. Medications: Reviewed: Yes Medication Review Details: Active Medications Generic Name Dose Route Start Last Admin Trade Name Freq PRN Reason Stop Dose Admin Acetaminophen 650 mg 02/18/20 02:04 02/18/20 08:34 Tylenol PO 650 mg Q6H PRN Administration MILD PAIN Amlodipine Besylat e 5 mg 02/19/20 04:20 02/19/20 10:03 Norvasc PO 5 mg DAILY DREAD Administration Dextrose 25 ml 02/17/20 22:12 D50w IVP ONCE PRN hypoglycemia prot ocol Protocol Dextrose 50 ml 02/17/20 22:12 D50w IVP PRN PRN hypoglycemia prot ocol Protocol Enoxaparin Sodium 40 mg 02/17/20 22:15 02/18/20 22:42 Lovenox SUBCUT 40 mg Q24H DREAD Administration Famotidine 20 mg 02/17/20 22:15 02/19/20 10:02 Pepcid Inj IVP 20 mg Q12H DREAD Administration Glucagon 1 mg 02/17/20 22:12 Glucagen IM ONCE PRN Adult Acute Hypog lycemia Prot. Protocol Potassium Chloride /Sodium Chloride 20 meq in 1,000 m ls @ 125 mls/hr 02/17/20 22:15 02/19/20 07:20 Sodium Chlor 0.9 % + Kcl 20 Meq IV 125 mls/hr .Q8H DREAD Administration Piperacillin Sod/T azobactam 50 mls @ 12.5 mls /hr 02/17/20 22:15 02/19/20 06:15 Sod 3.375 gm/ So dium Chloride IV 12.5 mls/hr Q8H DREAD Administration Protocol Dextrose 500 mls @ 100 mls /hr 02/17/20 22:12 D5w IV ONCE PRN Adult Acute Hypog lycemia Prot Protocol Insulin Aspart 0 unit 02/17/20 22:15 02/19/20 10:03 Novolog SUBCUT 4 unit Q6H DREAD Administration Protocol Morphine Sulfate 2 mg 02/18/20 04:59 02/19/20 00:56 Morphine IVP 2 mg Q3H PRN Administration SEVERE PAIN Ondansetron HCl 4 mg 02/17/20 22:12 02/18/20 02:11 Zofran IVP 4 mg Q6H PRN Administration NAUSEA AND VOMITI NG Tramadol HCl 50 mg 02/18/20 02:05 02/18/20 08:35 Ultram PO 50 mg Q6H PRN Administration MODERATE PAIN Sulfa (Sulfonamide Antibiotics) Allergy (Verified 01/29/20 13:31) Unknown Vitals/I&O/Wt Last Vital Signs Temp 99.3 F 02/19/20 10:31 Pulse 109 H 02/19/20 10:00 Resp 18 02/19/20 10:00 BP 154/95 02/19/20 10:00 Pulse Ox 96 02/19/20 10:00 02/18/20 02/19/20 02/19/20 22:59 06:59 14:59 Intake Total 3303.417 / 4353.417 1550 / 5903.417 1430 / 1430 Output Total 1750 / 3150 1200 / 4350 Balance 1553.417 / 1203.417 350 / 4257.880 4660 / 1430 Weight last 48 hrs Weight 97.069 kg Weight 104.326 kg Weight 104.326 kg Physical Exam Const: COMMON NORMALS: no acute distress, patient oriented x3 and alert GENERAL APPEARANCE: cooperative and comfortable; not ill appearing NUTRITIONAL APPEARANCE: obese morbidly obese OR IENTATION/CONSCIOUSNESS: Yes awake HENMT: COMMON NORMALS: normocephalic, atraumatic, hearing grossly normal bi laterally and moist oral mucous membranes HEAD & SCALP: normocephalic and atraumatic Eye: COMMON NORMALS: Equal, round and reactive pupils present, EOMs intact bilaterally and conjunctivae normal CONJUNCTIVA: Yes conjunctivae normal PUPIL: Yes Equal, round and reactive pupils present Neck/C-Spine: COMMON NORMALS: full ROM GENERAL: Yes normal visual inspection and Yes trachea midline Resp: COMMON NORMALS: normal respiratory effort, No retractions, No use of accessory muscles and clear to auscultation bilaterally EFFORT & INSPECTION: Yes able to speak in complete sentences, Yes symmetric chest movement and No tachypneic AUSCULTATION: clear to auscultation bilaterally Cardio: COMMON NORMALS: regular rate, regular rhythm, S1 normal heart sound present, S2 normal heart sound present and No murmurs present (Cardio) RATE: regular rate RHYTHM: regular rhythm HEART SOUNDS: S1 normal heart sound present and S2 normal heart sound present GI: COMMON NORMALS: Normal to inspection, nondistended, normoactive bowel soun ds present, Soft to palpation and non-tender INSPECTION: Yes central obesity PALPATION: Yes Soft to palpation : BLADDER/KIDNEY EXAM: Yes catheter in place Catheter type (Male): suprapubic (Chronic) Extremity: COMMON NORMALS: normal to inspection, no clubbing, cyanosis or edema and no pedal edema OTHER: -paraplegic Neuro: COMMON NORMALS: patient oriented x3, moves all extremities, no focal motor deficits and no sensory deficits noted SENSORIUM/ORIENTATION: Yes alert GAIT: Yes Other gait observations present (paraplegic) Psych: COMMON NORMALS: mental status grossly normal, Normal thought process present, cooperative, normal affect and speech normal SPEECH: Yes normal speech THOUGHT PROCESS: Normal thought process present Skin: COMMON NORMALS: no rashes or lesions noted, no jaundice, no petechiae and no mottling GENERAL SKIN EXAM: no rashes or lesions noted Urinary Catheter Management^: Suprapubic: Cath Placed During This Visit: no Reason for Continuing Indwelling Catheter: Chronic Indwelling Urinary Catheter on Admission Data : 02/19/20 04:35 02/19/20 04:35 Micro: Microbiology 02/17/20 19:31 Blood Culture - Preliminary Blood NEGATIVE TO DATE 02/17/20 19:30 Blood Culture - Preliminary Blood NEGATIVE TO DATE A&P Assessment and plan (1) Acute pyelonephritis: -UA strongly indicative of infection -Noted evidence of mild right hydronephrosis with mild inflammation as well as prominent urinary bladder wall thickening on imaging -Has chronic suprapubic bladder catheter secondary to neurogenic bladder -Associated sepsis as noted below -blood cx: prelim negative -urine culture: GNRs, pending ID & sensitivity -Noted to be afebrile overnight, last fever was 5/18 (T-max of 103.1 F), mildly tachycardic, normotensive. Continue to monitor vital signs -Continue Zosyn; received Ceftriaxone in ED Status: Acute (2) Sepsis: -Secondary to pyelonephritis, as evidenced by leukocytosis, lactic acidosis, tachycardia, fever -leukocytosis decreasing, continue to trend WBC -lactic acidosis resolved, afebrile Status: Resolved Qualifiers: Sepsis acute organ dysfunction status: unspecified Sepsis type: sepsis due to unspecified organism Qualified Code(s): A41.9 - Sepsis, unspecified or ganism (3) Encephalopathy acute: -Likely secondary to acute pyelonephritis with associated sepsis -mental status has returned to baseline (A & O x 3) Status: Resolved (4) Paraplegia, complete: -Fall precautions -WC-bound at baseline Status: Chronic (5) Neurogenic bladder: -Has suprapubic catheter; last changed on 01/23/[address] Bauer, changed monthly and scheduled for next change next week -Follows up with Dr. Bauer Status: Chronic Additional A&P Information -HTN; currently normotensive -NIDDM type II, A1c at goal (< 7, 07/2019); on ISS, Accucheks, hypoglycemia precautions -GERD; on famotidine -Anxiety -Morbid obesity: BMI-32 kg/m2 -Hyperlipidemia -Chronic pain; pain control as needed -DVT ppx with Lovenox -CLD, advance diet as tolerated -Dispo: home -Code status: FULL code -transfer to floor for continued care Attestations Medical Necessity Statement*: Patient requires hospitalization for continued IV antibiotics for treatment of complicated UTI pending culture results. Time Spent in Patient Care: 16 - 35 minutes (>than 50% of time spent in c ounselling and/or direct pt care on unit) . Coding Level of Care Code Acute Audiovisual Production Specialist for [facility] Fwd Exam Comprehensive Diagnoses Acute pyelonephritis N10 Sepsis A41.9 Sepsis acute organ dysfunction status: unspecified Sepsis type: sepsis due to unspecified organism Encephalopathy acute G93.40 Paraplegia, complete G82.21 Neurogenic bladder N31.9
[2020-02-19] MEDS: potassium chloride oral liq 20 mEq/15 mL UDC 40 MEQ PO (13:52)
[2020-02-19] MEDS: metoprolol tartrate 50 mg Tablet PO ×2 (13:55→17:46)
--- NOTE | 2020-02-19 15:41 | PC.NURSE ---
transfer report called to LEMUEL Belcher. Patient taken to room 277-1. Oriented to room and call light.
[2020-02-19 17:03] LABS: Glucose Point of Care 138 mg/dL (70-110)
[2020-02-19] MEDS: famotidine 20 mg Tablet PO (17:46)
[2020-02-19 21:05] LABS: Glucose Point of Care 98 mg/dL (70-110)
[2020-02-19] MEDS: enoxaparin 40 mg/0.4 mL Syringe SUBCUT (21:34)
[2020-02-20] VITALS (9 sets, daily range): BP systolic 145–196; BP diastolic 90–112; PULSE 83–114; RESP 18–19; TEMP 36.8–37.1; O2SAT 94–98; BMI 31.4
[2020-02-20] MEDS: amlodipine 5 mg Tablet 10 MG PO (00:08)
[2020-02-20] MEDS: sodium chlor 0.9% + KCl 20 mEq 20 MEQ/1,000 ML BAG 75 MEQ IV (01:11)
[2020-02-20 03:46] LABS: Basophils # 0.1 10^3/uL (0.0-0.1); Basophils % 0.8 %; Eosinophils # 0.1 10^3/uL (0.0-0.8); Eosinophils % 0.7 %; Hematocrit 35.7 % (42.0-52.0); Hemoglobin 11.1 g/dL (11.7-16.6); Lymphocytes # 1.9 10^3/uL (0.8-4.8); Lymphocytes % 14.1 %; Mean Corpuscular HGB Conc 31.1 g/dL (30.0-36.0); Mean Corpuscular Hemoglobin 26.1 pg (28.0-34.0); Mean Corpuscular Volume 83.8 fL (80-94); Mean Platelet Volume 10.5 fL (7.4-10.4); Monocytes # 1.4 10^3/uL (0.2-0.9); Monocytes % 10.3 %; Neutrophils # 9.6 10^3/uL (1.8-7.7); Nucleated Red Blood Cells % 0 %; Platelet Count 288 10^3/cmm (130-400); Red Blood Count 4.26 10^6/uL (4.1-5.3); Red Cell Distribution Width 15.2 % (12.1-15.1); White Blood Count 13.2 10^3/uL (4.0-10.0)
[2020-02-20 03:59] LABS: Anion Gap 19.2 (5-19); Blood Urea Nitrogen 8 mg/dL (8-23); Calcium 9.6 mg/dL (8.5-10.5); Carbon Dioxide 18 mmol/L (22-29); Chloride 104 mmol/L (98-107); Glomerular Filtration Rate 86.1 mL/min (90-130); Glucose 134 mg/dL (65-115); Osmolality Calculated 284 mOsm/kg (285-295); Potassium 3.2 mmol/L (3.5-5.1); Sodium 138 mmol/L (136-145)
[2020-02-20 05:13] LABS: Glucose Point of Care 141 mg/dL (70-110)
[2020-02-20] MEDS: piperacillin-tazobactam 3.375 GM in sodium chloride 0.9% (plus) 50 ML IV ×2 (05:24→14:14)
[2020-02-20] MEDS: famotidine 20 mg Tablet PO ×2 (07:44→17:24)
[2020-02-20] MEDS: amlodipine 10 mg Tablet PO (07:44)
[2020-02-20] MEDS: venlafaxine ER (24HR) 75 mg Capsule PO (07:44)
[2020-02-20] MEDS: metoprolol tartrate 50 mg Tablet PO ×2 (07:44→17:24)
--- NOTE | 2020-02-20 08:50 | PC.SOCIAL ---
IMM Page 2 of IMM given to patient. Initialed, dated, and timed and placed in chart.
--- NOTE | 2020-02-20 13:58 | PM.PN ---
Subjective Subjective: Interval history: Had 3200 mL urine output overnight, afebrile, decreasing leukocytosis, mild hypokalemia. Sitting up in bed, no apparent distress, in good spirits. Noted hypertension so will add ACEi. Urine culture growing Pseudomonas aeruginosa, sensitivity noted. Medications: Reviewed: Yes Medication Review Details: Active Medications Generic Name Dose Route Start Last Admin Trade Name Freq PRN Reason Stop Dose Admin Acetaminophen 650 mg 02/18/20 02:04 02/18/20 08:34 Tylenol PO 650 mg Q6H PRN Administration MILD PAIN Amlodipine Besylat e 10 mg 02/20/20 09:00 02/20/20 07:44 Norvasc PO 10 mg DAILY DREAD Administration Dextrose 25 ml 02/17/20 22:12 D50w IVP ONCE PRN hypoglycemia prot ocol Protocol Dextrose 50 ml 02/17/20 22:12 D50w IVP PRN PRN hypoglycemia prot ocol Protocol Enoxaparin Sodium 40 mg 02/17/20 22:15 02/19/20 21:34 Lovenox SUBCUT 40 mg Q24H DREAD Administration Famotidine 20 mg 02/19/20 18:00 02/20/20 07:44 Pepcid Tab PO 20 mg BID DREAD Administration Glucagon 1 mg 02/17/20 22:12 Glucagen IM ONCE PRN Adult Acute Hypog lycemia Prot. Protocol Potassium Chloride /Sodium Chloride 20 meq in 1,000 m ls @ 75 mls/hr 02/17/20 22:15 02/20/20 01:11 Sodium Chlor 0.9 % + Kcl 20 Meq IV 75 mls/hr .[id number] DREAD Administration Piperacillin Sod/T azobactam 50 mls @ 12.5 mls /hr 02/17/20 22:15 02/20/20 05:24 Sod 3.375 gm/ So dium Chloride IV 12.5 mls/hr Q8H DREAD Administration Protocol Dextrose 500 mls @ 100 mls /hr 02/17/20 22:12 D5w IV ONCE PRN Adult Acute Hypog lycemia Prot Protocol Insulin Aspart 0 unit 02/20/20 12:00 02/20/20 11:09 Novolog SUBCUT Not Given AC DREAD Protocol Metoprolol Tartrat e 50 mg 02/19/20 13:40 02/20/20 07:44 Lopressor PO 50 mg BID DREAD Administration Morphine Sulfate 2 mg 02/18/20 04:59 02/19/20 00:56 Morphine IVP 2 mg Q3H PRN Administration SEVERE PAIN Ondansetron HCl 4 mg 02/17/20 22:12 02/18/20 02:11 Zofran IVP 4 mg Q6H PRN Administration NAUSEA AND VOMITI NG Tramadol HCl 50 mg 02/18/20 02:05 02/18/20 08:35 Ultram PO 50 mg Q6H PRN Administration MODERATE PAIN Venlafaxine HCl 75 mg 02/20/20 09:00 02/20/20 07:44 Effexor Xr PO 75 mg DAILY DREAD Administration Sulfa (Sulfonamide Antibiotics) Allergy (Verified 01/29/20 13:31) Unknown Vitals/I&O/Wt Last Vital Signs Temp 98.7 F 02/20/20 12:00 Pulse 91 02/20/20 12:00 Resp 18 02/20/20 12:00 BP 180/90 02/20/20 12:49 Pulse Ox 96 02/20/20 12:00 02/19/20 02/20/20 02/20/20 22:59 06:59 14:59 Intake Total 1770 / 4426.667 250 / 4676.667 120 / 120 Output Total 1600 / 4800 1600 / 6400 Balance 170 / -373.333 -1350 / -1723.333 120 / 120 Weight last 48 hrs Weight 96.615 kg Weight 95.708 kg Weight 97.069 kg Physical Exam Const: COMMON NORMALS: no acute distress, patient oriented x3 and alert GENERAL APPEARANCE: cooperative and comfortable; not ill appearing NUTRITIONAL APPEARANCE: obese morbidly obese ORIENTATION/CONSCIOUSNESS: Yes awake HENMT: COMMON NORMALS: normocephalic, atraumatic, hearing grossly normal bilaterally and moist oral mucous membranes HEAD & SCALP: normocephalic and atraumatic Eye: COMMON NORMALS: Equal, round and reactive pupils present, EOMs intact bilaterally and conjunctivae normal CONJUNCTIVA: Yes conjunctivae normal PUPIL: Yes Equal, round and reactive pupils present Neck/C-Spine: COMMON NORMALS: full ROM GENERAL: Yes normal visual inspection and Yes trachea midline Resp: COMMON NORMALS: normal respiratory effort, No retractions, No use of accessory muscles and clear to auscultation bilaterally EFFORT & INSPECTION: Yes able to speak in complete sentences, Yes symmetric chest movement and No tachypneic AUSCULTATION: clear to auscultation bilaterally Cardio: COMMON NORMALS: regular rate, regular rhythm, S1 normal heart sound present, S2 normal heart sound present and No murmurs present (Cardio) RATE: regular rate RHYTHM: regular rhythm HEART SOUNDS: S1 normal heart sound present and S2 normal heart sound present GI: COMMON NORMALS: Normal to inspection, nondistended, normoactive bowel sounds present, Soft to palpation and non-tender INSPECTION: Yes central obesity PALPATION: Yes Soft to palpation : BLADDER/KIDNEY EXAM: Yes catheter in place Extremity: COMMON NORMALS: normal to inspection, no clubbing, cyanosis or edema and no pedal edema OTHER: -paraplegic Neuro: COMMON NORMALS: patient oriented x3, moves all extremities, no focal motor deficits and no sensory deficits noted SENSORIUM/ORIENTATION: Yes alert GAIT: Yes Other gait observations present (paraplegic) Psych: COMMON NORMALS: mental status grossly normal, Normal thought process present, cooperative, normal affect and speech normal SPEECH: Yes normal speech THOUGHT PROCESS: Normal thought process present Skin: COMMON NORMALS: no jaundice, no petechiae and no mottling OTHER: -Wound in L lower gluteal area, discrete, with noted tunneling, serous drainage (not malodorous), no noted erythema Urinary Catheter Management^: Suprapubic: Cath Placed During This Visit: no Reason for Continuing Indwelling Catheter: Acute Urinary Retention or Obstruction Data : 02/20/20 03:20 02/20/20 03:20 Micro: Microbiology 02/17/20 21:15 Urine Culture - Preliminary Urine,Clean Catch Gram Negative Rods A&P Assessment and plan (1) Acute pyelonephritis: -UA strongly indicative of infection -Noted evidence of mild right hydronephrosis with mild inflammation as well as prominent urinary bladder wall thickening on imaging -Has chronic suprapubic bladder catheter secondary to neurogenic bladder -Associated sepsis as noted below resolved -blood cx: prelim negative -urine culture: Pseudomonas aeruginosa, sensitivity noted -has been afebrile x > 24 hrs, last fever was 5/18 (T-max of 103.1 F), mildly tachycardic, normotensive. Continue to monitor vital signs -Continue Zosyn; received Ceftriaxone in ED; will start on oral Levaquin based on sensitivity -d/c IVF as has good oral intake Status: Acute (2) Sepsis: -Secondary to pyelonephritis, as evidenced by leukocytosis, lactic acidosis, tachycardia, fever -leukocytosis decreasing, continue to trend WBC -lactic acidosis resolved, afebrile Status: Resolved Qualifiers: Sepsis acute organ dysfunction status: unspecified Sepsis type: sepsis due to unspecified organism Qualified Code(s): A41.9 - Sepsis, unspecified organism (3) Encephalopathy acute: -Likely secondary to acute pyelonephritis with associated sepsis -mental status has returned to baseline (A & O x 3) Status: Resolved (4) Paraplegia, complete: -Fall precautions -WC-bound at baseline Status: Chronic (5) Neurogenic bladder: -Has suprapubic catheter; last changed on 01/23/[address] Bauer, changed monthly and scheduled for next change next week -Follows up with Dr. Bauer Status: Chronic Additional A&P Information -HTN; currently normotensive -NIDDM type II, A1c at goal (< 7, 07/2019); on ISS, Accucheks, hypoglycemia precautions -GERD; on famotidine -Anxiety -Morbid obesity: BMI-32 kg/m2 -Hyperlipidemia -Chronic pain; pain control as needed -chronic decubitus ulcer on L gluteal area; keep area clean and dry, wet-to-dry dressing with packing; f/u with Dr. Cruz at [facility]. Sister assists with wound care -DVT ppx with Lovenox -consistent carb diet as tolerated -Dispo: home -Code status: FULL code Attestations Medical Necessity Statement*: Patient requires hospitalization for continued IV antibiotic therapy for complicated UTI, transitioned to oral antibiotics. Time Spent in Patient Care: 16 - 35 minutes (>than 50% of time spent in counselling and/or direct pt care on unit). Coding Level of Care Code Acute Child Protective Investigator for [facility] Fwd Exam Comprehensive Diagnoses Acute pyelonephritis N10 Sepsis A41.9 Sepsis acute organ dysfunction status: unspecified Sepsis type: sepsis due to unspecified organism Encephalopathy acute G93.40 Paraplegia, complete G82.21 Neurogenic bladder N31.9
[2020-02-20] MEDS: lisinopril 10 mg Tablet PO (14:13)
--- NOTE | 2020-02-20 14:21 | PC.NURSE ---
HTN - Patients blood pressure has remained elevated this shift. Have given meds as ordered. Notified Dr. Matamoros of pressures at 0954 with no new orders. DANAW, STRETCHER LEVELER OPERATOR HELPER
[2020-02-20] MEDS: baclofen 10 mg Tablet PO (17:24)
[2020-02-20 21:07] LABS: Glucose Point of Care 143 mg/dL (70-110)
[2020-02-20 21:08] LABS: Glucose Point of Care 102 mg/dL (70-110)
[2020-02-20 21:08] LABS: Glucose Point of Care 120 mg/dL (70-110)
--- NOTE | 2020-02-20 22:02 | PC.NURSE ---
PATIENT REFUSED HS DOSE OF ZOSYN, BACLOFEN, AND LOVENOX, NOTIFIED DR. BERNARDO, PATIENT EDUCATION GIVEN PATIENT CONTINUED TO REFUSE. ALERTX4. PATIENT REFUSES TO WEAR TELEMETRY, PHYSICIAN ALSO NOTIFIED.
[2020-02-21] VITALS: BP 143/88; PULSE 103; RESP 21; TEMP 36.8; O2SAT 97
[2020-02-21 06:01] LABS: Basophils # 0.1 10^3/uL (0.0-0.1); Basophils % 0.6 %; Eosinophils # 0.1 10^3/uL (0.0-0.8); Eosinophils % 0.8 %; Hematocrit 35.6 % (42.0-52.0); Hemoglobin 11.4 g/dL (11.7-16.6); Lymphocytes # 2.1 10^3/uL (0.8-4.8); Lymphocytes % 12.1 %; Mean Corpuscular Hemoglobin 26.2 pg (28.0-34.0); Mean Corpuscular Volume 81.8 fL (80-94); Mean Platelet Volume 10.2 fL (7.4-10.4); Monocytes # 1.3 10^3/uL (0.2-0.9); Monocytes % 7.4 %; Neutrophils # 13.4 10^3/uL (1.8-7.7); Neutrophils % 77.8 %; Nucleated Red Blood Cells % 0 %; Platelet Count 367 10^3/cmm (130-400); Red Blood Count 4.35 10^6/uL (4.1-5.3); White Blood Count 17.2 10^3/uL (4.0-10.0)
[2020-02-21 06:15] LABS: Potassium 3.4 mmol/L (3.5-5.1)
[2020-02-21 06:39] LABS: Glucose Point of Care 102 mg/dL (70-110)
[2020-02-21 07:50] VITALS: BP 156/89; PULSE 110; RESP 20; TEMP 36.7; O2SAT 97
--- NOTE | 2020-02-21 08:51 | PC.NURSE ---
Prn note This staff member spoke with sister, Sandy, as patient has had out bursts of aggression. She reports this is not new for him and he is most likely ready for discharge. Physician notified and will place orders.
--- NOTE | 2020-02-21 09:22 | PM.DCS ---
Discharge Providers Date of Admission: 02/17/20 22:46 Date of Discharge: February 21, 2020 Attending Provider at Admission: Jose G Ferrari Attending Provider at Discharge: Tammy Matamoros MD Primary Care Provider: Jennifer Patel MD Diagnoses at Discharge Discharge Diagnosis (1) Acute pyelonephritis: Status: Acute Problem details: -UA strongly indicative of infection -Noted evidence of mild right hydronephrosis with mild inflammation as well as prominent urinary bladder wall thickening on imaging -Has chronic suprapubic bladder catheter secondary to neurogenic bladder -Associated sepsis as noted below resolved -blood cx: prelim negative -urine culture: Pseudomonas aeruginosa, sensitivity noted -has been afebrile x > 24 hrs, last fever was 5/ (T-max of 103.1 F), mildly tachycardic, normotensive. Continue to monitor vital signs -Continue Zosyn; received Ceftriaxone in ED; started on oral Levaquin based on sensitivity -d/c IVF as has good oral intake (2) Sepsis: Status: Resolved Problem details: -Secondary to pyelonephritis, as evidenced by leukocytosis, lactic acidosis, tachycardia, fever -leukocytosis decreasing, continue to trend WBC -lactic acidosis resolved, afebrile Qualifiers: Sepsis acute organ dysfunction status: unspecified Sepsis type: sepsis due to unspecified organism Qualified Code(s): A41.9 - Sepsis, unspecified organism (3) Encephalopathy acute: Status: Resolved Problem details: -Likely secondary to acute pyelonephritis with associated sepsis -mental status has returned to baseline (A & O x 3) (4) Paraplegia, complete: Status: Chronic Problem details: -Fall precautions -WC-bound at baseline (5) Neurogenic bladder: Status: Chronic Problem details: -Has suprapubic catheter; last changed on 01/23/[address] Bauer, changed monthly and scheduled for next change next week -Follows up with Dr. Bauer Other Information Additional DC diagnoses/information: -HTN; currently normotensive -NIDDM type II, A1c at goal (< 7, 07/2019); on ISS, Accucheks, hypoglycemia precautions -GERD; on famotidine -Anxiety -Morbid obesity: BMI-32 kg/m2 -Hyperlipidemia -Chronic pain; pain control as needed -chronic decubitus ulcer on L gluteal area; keep area clean and dry, wet-to-dry dressing with packing; f/u with Dr. Cruz at [facility]. Sister assists with wound care Reason for Visit Reason for Visit: Reason For Visit: fever Hospital Course Hospital Course: Patient was initially admitted to ICU due to noted UA indicative of infection and concern for sepsis as evidenced by fever, leukocytosis, altered mental status, lactic acidosis. He was started on broad-spectrum IV antibiotic treatment and IV fluid hydration. He did require close one-on-one monitoring due to change in mental status and high fall risk secondary to underlying paraplegia. He has a chronic suprapubic catheter that is changed monthly on his follow-up with Dr. Bauer which is due to be changed this week. He has had very good urine output, has responded well to antibiotic treatment with noted decreasing leukocytosis, resolution of lactic acidosis, returned to baseline mental status, and been afebrile for greater than 24 hours. Once clinically improving he was transferred to medical surgical floor for continued care. Blood cultures have been negative, urine cultures have grown pseudomonas aeruginosa and he has been switched to oral Levaquin to complete his treatment course. Overnight he was noted to have increased agitation and again required one-on-one monitoring. Per sister (primary caregiver), patient does display some waxing and waning at baseline with some behavioral issues and she is comfortable having him return home today. He will need to follow-up with Dr. Bauer to have his suprapubic catheter changed. Of note he has a chronic left gluteal wound for which he follows up with Dr. Cruz at the wound care clinic monthly. He is due for follow-up; wound does not appear acutely infected. He is to continue wound care with wet to dry dressings as before. He did require intermittent replacement of his potassium during his hospital stay. Due to noted increased blood pressure, I have increased his dose of amlodipine and added lisinopril for more optimal blood pressure control. Discharge Summary: -Patient to follow up with primary care physician within 1 week -Patient to follow up with Dr. Bauer next week -Patient to continue to follow up with Dr. Cruz at wound care clinic Physical Exam Const: COMMON NORMALS: no acute distress, patient oriented x3 and alert GENERAL APPEARANCE: cooperative and comfortable; not ill appearing NUTRITIONAL APPEARANCE: obese morbidly obese ORIENTATION/CONSCIOUSNESS: Yes awake HENMT: COMMON NORMALS: normocephalic, atraumatic, hearing grossly normal bilaterally and moist oral mucous membranes HEAD & SCALP: normocephalic and atraumatic Eye: COMMON NORMALS: Equal, round and reactive pupils present, EOMs intact bilaterally and conjunctivae normal CONJUNCTIVA: Yes conjunctivae normal PUPIL: Yes Equal, round and reactive pupils present Neck/C-Spine: COMMON NORMALS: full ROM GENERAL: Yes normal visual inspection and Yes trachea midline Resp: COMMON NORMALS: normal respiratory effort, No retractions, No use of accessory muscles and clear to auscultation bilaterally EFFORT & INSPECTION: Yes able to speak in complete sentences, Yes symmetric chest movement and No tachypneic AUSCULTATION: clear to auscultation bilaterally Cardio: COMMON NORMALS: regular rate, regular rhythm, S1 normal heart sound present, S2 normal heart sound present and No murmurs present (Cardio) RATE: regular rate RHYTHM: regular rhythm HEART SOUNDS: S1 normal heart sound present and S2 normal heart sound present GI: COMMON NORMALS: Normal to inspection, nondistended, normoactive bowel sounds present, Soft to palpation and non-tender INSPECTION: Yes central obesity PALPATION: Yes Soft to palpation : BLADDER/KIDNEY EXAM: Yes catheter in place Extremity: COMMON NORMALS: normal to inspection, no clubbing, cyanosis or edema and no pedal edema OTHER: -paraplegic Neuro: COMMON NORMALS: patient oriented x3, moves all extremities, no focal motor deficits and no sensory deficits noted SENSORIUM/ORIENTATION: Yes alert GAIT: Yes Other gait observations present (paraplegic) Psych: COMMON NORMALS: mental status grossly normal, Normal thought process present, cooperative, normal affect and speech normal SPEECH: Yes normal speech THOUGHT PROCESS: Normal thought process present Skin: COMMON NORMALS: no jaundice, no petechiae and no mottling OTHER: -Wound in L lower gluteal area, discrete, with noted tunneling, serous drainage (not malodorous), no noted erythema Urinary Catheter Management^: Suprapubic: Cath Placed During This Visit: no Reason for Continuing Indwelling Catheter: Acute Urinary Retention or Obstruction Discharge Data Data Completed and Pending: Completed Studies During Hospitalization Category Date Time Status CT abdomen pelvis w con* [id number] Stat Cat Scan 02/17/20 19:28 Completed XR chest 1V alejandro ble [id number] Stat Exams 02/17/20 19:13 Completed Pending at discharge Category Date Time Status Blood Culture Sta t Lab 02/17/20 19:31 Results Labs from last 24 hours 02/21/20 02/21/20 02/21/20 06:29 05:45 05:45 WBC 17.2 H RBC 4.35 Hgb 11.4 L Hct 35.6 L MCV 81.8 MCH 26.2 L MCHC 32.0 RDW 15.0 Plt Count 367 MPV 10.2 Neut % (Auto) 77.8 Lymph % (Auto) 12.1 [place] % (Auto) 7.4 Eos % (Auto) 0.8 Baso % (Auto) 0.6 Neut # (Auto) 13.4 H Lymph # (Auto) 2.1 [place] # (Auto) 1.3 H Eos # (Auto) 0.1 Baso # (Auto) 0.1 Nucleated RBC % (a uto) 0 Nucleated RBCs # 0.0 Potassium 3.4 L POC Glucose 102 02/20/20 02/20/20 02/20/20 20:26 16:55 09:55 WBC RBC Hgb Hct MCV MCH MCHC RDW Plt Count MPV Neut % (Auto) Lymph % (Auto) [place] % (Auto) Eos % (Auto) Baso % (Auto) Neut # (Auto) Lymph # (Auto) [place] # (Auto) Eos # (Auto) Baso # (Auto) Nucleated RBC % (a uto) Nucleated RBCs # Potassium POC Glucose 102 120 143 Vitals: Last Vital Signs Temp 98.0 F 02/21/20 07:50 Pulse 110 H 02/21/20 07:50 Resp 20 H 02/21/20 07:50 BP 156/89 02/21/20 07:50 Pulse Ox 97 02/21/20 07:50 Discharge Plan Discharge Patient Disposition: Home, Self-Care Condition: Stable Prescriptions: New amlodipine 10 mg Tablet 10 mg PO DAILY 30 Days Qty: 30 RF: 0 levofloxacin 750 mg Tablet 750 mg PO DAILY 10 Days Qty: 10 RF: 0 lisinopril 10 mg Tablet 10 mg PO BID 30 Days Qty: 60 RF: 0 Continued magnesium L-lactate 84 mg tablet extended release 84 mg PO BID RF: 0 atorvastatin 80 mg tablet 80 mg PO QDAY Qty: 30 RF: 1 fluticasone propionate [Flonase Allergy Relief] 50 mcg/actuation spray,suspension 2 spray INTRANASAL DAILY Qty: 9.9 RF: 1 betamethasone acet,sod phos [Celestone Soluspan] 6 mg/mL suspension 6 mg IM ONCE Qty: 1 RF: 0 dexamethasone sodium phosphate 4 mg/mL solution 4 mg IM ONCE Qty: 1 RF: 0 meclizine 25 mg tablet 25 mg PO TID PRN (Reason: dizziness) Qty: 30 RF: 0 potassium chloride 10 mEq capsule, extended release See Rx Instructions PO BID RF: 0 ascorbate calcium (vitamin C) 500 mg tablet 500 mg PO BID RF: 0 oxybutynin chloride 10 mg tablet extended release 24hr 10 mg PO QDAY RF: 0 gabapentin 600 mg tablet 600 mg PO QDAY RF: 0 gabapentin 800 mg tablet 800 mg PO TID RF: 0 metoprolol tartrate 50 mg tablet 50 mg PO BID RF: 0 metformin 500 mg tablet 500 mg PO BID Qty: 180 RF: 0 pantoprazole 40 mg tablet,delayed release (DR/EC) 40 mg PO DAILY Qty: 30 RF: 2 methenamine hippurate 1 gram tablet 1 gm PO BID Qty: 60 RF: 12 baclofen 10 mg tablet 10 mg PO QID Qty: 120 RF: 1 glipizide 10 mg tablet extended release 24hr 10 mg PO DAILY Qty: 90 RF: 0 venlafaxine 75 mg capsule,extended release 24hr 75 mg PO QDAY Qty: 90 RF: 0 venlafaxine 150 mg capsule,extended release 24hr 150 mg PO QDAY Qty: 90 RF: 0 Discontinued amlodipine 5 mg tablet 5 mg PO QDAY Qty: 30 RF: 1 cefdinir 300 mg capsule 300 mg PO BID Qty: 20 RF: 0 Discharge Orders: Discharge Order (Routine); Ordered 02/21/20 Ordered By: Tammy Matamoros Referrals: Adolph Bauer MD [Physician] - 1 week (Follow up on chronic suprapubic catheter) Jamel Cruz MD [Physician] - (Wound care clinic follow up for chronic L gluteal wound. ) Jennifer Patel MD [Primary Care Provider] - 4-7 days (Post hospital discharge follow up. Treated for complicated UTI with course of Levaquin) Discharge Diet: Cardiac Discharge Activity: Wheelchair as instructed Patient Instructions: Lisinopril (By mouth), Amlodipine (By mouth), Levofloxacin (By mouth), Acute Pyelonephritis (DC), Sepsis (DC), Altered Mental Status (GEN) Activity Restrictions/Additional Instructions: -Please continue to follow up with Dr. Bauer for suprapubic catheter change -Please continue to keep L gluteal wound area clean, dry, wet to dry dressing changes and keep covered to avoid fecal contamination Discharge Attestations Time Spent in Discharge Care*: greater than 30 min Specific Discharge Activities: Specific discharge activities: educating patient, discussing with showcase maker/social workers/dc planners, documenting/other paperwork and evaluating patient/reviewing data Status at Discharge: Cognitive status at discharge: cognitively intact, Behavioral status at discharge: cooperative, Functional status at discharge: wheelchair bound Overall status at discharge: patient is progressing back to baseline Quality Metrics Clinical Quality Measures During this hospital stay, did patient experience: None Coding Level of Care Code Acute 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
--- NOTE | 2020-02-21 09:47 | PC.NURSE ---
Patient verbally abusive, sitter and I tried to keep patient from disconnecting his drainage from his Cath. Patient demanding to go home. Dr. Munoz seen patient, wrote orders for D/C. Patient threw pillow and his catheter bad at staff. He demanded no one could touch him. Patient dressed per Charge Nurse Simi and Dr. Munoz.
[2020-02-21 09:58] VITALS: BP 156/89; PULSE 110; RESP 20; TEMP 36.7; O2SAT 97
== END 2020-02-21 10:00 | disposition home or self-care (01) | DRG 871 ==
LOC: ER 20:29 → ICU 23:50 → MEDSURG 02-19 15:41
PROVIDERS: Emergency Medicine; Admitting Provider Internal Medicine; Family Provider Family Medicine; PCP Family Medicine; Visit Provider Family Medicine
DX: A41.9 Sepsis, unspecified organism (principal); G93.41 Metabolic encephalopathy; G82.21 Paraplegia, complete; E87.2 Acidosis; N10 Acute pyelonephritis; E87.6 Hypokalemia; E78.5 Hyperlipidemia, unspecified; E66.01 Morbid (severe) obesity due to excess calories; Z68.32 Body mass index [BMI] 32.0-32.9, adult; K21.9 Gastro-esophageal reflux disease without esophagitis; F41.9 Anxiety disorder, unspecified; L89.329 Pressure ulcer of left buttock, unspecified stage; Z79.84 Long term (current) use of oral hypoglycemic drugs; N31.9 Neuromuscular dysfunction of bladder, unspecified; B96.5 Pseudomonas (aeruginosa) (mallei) (pseudomallei) as the cause of diseases classified elsewhere; G89.4 Chronic pain syndrome; N18.9 Chronic kidney disease, unspecified; D63.1 Anemia in chronic kidney disease; E11.22 Type 2 diabetes mellitus with diabetic chronic kidney disease; I12.9 Hypertensive chronic kidney disease with stage 1 through stage 4 chronic kidney disease, or unspecified chronic kidney disease
CPT/HCPCS: 12345; 36415; 36416; 71045; 74177; 80048; 80053; 81001; 82962; 83605; 83690; 83735; 84132; 84484; 85025; 87040; 87077; 87086; 87186; 93005; 96372; 96375; 97110; 97161; 97530; 99283; J0696; J1650; J1815; J2001; J2270; J2405; J2543; J3475; J3480; J3490; J7030; Q9967

== ENCOUNTER 2020-02-26 15:17 | Outpatient (CLI) | payer MEDICARE, SELFPAY | END 2020-02-26 15:18 | disposition home or self-care (01) | LOC: WOUND 15:18 | PROVIDERS: Family Provider Family Medicine; PCP Family Medicine; Visit Provider Thoracic Surgery (Cardiothoracic Vascular Surgery) | DX: L89.324 Pressure ulcer of left buttock, stage 4 (principal) | CPT/HCPCS: 11042 ==

== ENCOUNTER 2020-03-25 11:04 | Outpatient (CLI) | payer MEDICARE, SELFPAY | END 2020-03-25 11:05 | disposition home or self-care (01) | LOC: WOUND 11:09 | PROVIDERS: Family Provider Family Medicine; PCP Family Medicine; Visit Provider Thoracic Surgery (Cardiothoracic Vascular Surgery) | DX: L89.324 Pressure ulcer of left buttock, stage 4 (principal) | CPT/HCPCS: 11042 ==

== ENCOUNTER 2020-04-22 10:48 | Outpatient (CLI) | payer MEDICARE, SELFPAY | END 2020-04-22 10:49 | disposition home or self-care (01) | LOC: WOUND 10:52 | PROVIDERS: Family Provider Family Medicine; PCP Family Medicine; Visit Provider Thoracic Surgery (Cardiothoracic Vascular Surgery) | DX: L89.324 Pressure ulcer of left buttock, stage 4 (principal) | CPT/HCPCS: 11042; A6446 ==

== ENCOUNTER → 2020-05-05 14:41 | Outpatient (BNVA) | payer MEDICARE, SELFPAY | PROVIDERS: Family Provider Family Medicine; PCP Family Medicine; Visit Provider Family Medicine | DX: E78.5 Hyperlipidemia, unspecified (principal); E11.9 Type 2 diabetes mellitus without complications; I10 Essential (primary) hypertension; K21.9 Gastro-esophageal reflux disease without esophagitis; F41.9 Anxiety disorder, unspecified | CPT/HCPCS: 80053; 80061; 83036; 85025 ==

== ENCOUNTER 2020-06-03 13:04 | Outpatient (CLI) | payer MEDICARE, SELFPAY | END 2020-06-03 13:05 | disposition home or self-care (01) | LOC: WOUND 13:05 | PROVIDERS: Family Provider Family Medicine; PCP Family Medicine; Visit Provider Thoracic Surgery (Cardiothoracic Vascular Surgery) | DX: L89.324 Pressure ulcer of left buttock, stage 4 (principal) | CPT/HCPCS: 11042 ==

== ENCOUNTER 2020-07-01 13:17 | Outpatient (CLI) | payer MEDICARE, SELFPAY | END 2020-07-01 13:18 | disposition home or self-care (01) | LOC: WOUND 13:18 | PROVIDERS: Family Provider Family Medicine; PCP Family Medicine; Visit Provider Thoracic Surgery (Cardiothoracic Vascular Surgery) | DX: I96 Gangrene, not elsewhere classified (principal); L89.324 Pressure ulcer of left buttock, stage 4 | CPT/HCPCS: 11042; A6446 ==

== ENCOUNTER 2020-07-15 11:03 | Outpatient (CLI) | payer MEDICARE, SELFPAY | END 2020-07-15 11:04 | disposition home or self-care (01) | LOC: WOUND 11:04 | PROVIDERS: Family Provider Family Medicine; PCP Family Medicine; Visit Provider Thoracic Surgery (Cardiothoracic Vascular Surgery) | DX: L89.324 Pressure ulcer of left buttock, stage 4 (principal) | CPT/HCPCS: 11042 ==

== ENCOUNTER 2020-07-18 12:12 | Outpatient (CLI) | payer MEDICARE, SELFPAY ==
--- NOTE | 2020-07-18 12:13 | CT_ITS ---
WS: [id number] CT PELVIS WITH AND WITHOUT HISTORY: PAIN/REDNESS/NONHEALING ULCER/ABSCESS TECHNIQUE: Contiguous imaging is performed of the pelvis with and without contrast. Coronal and sagit sola reformats are reviewed. All CT scans at [facility] use at least one of these dose opt imization techniques: automated exposure control; mA and/or kV adjustment per patient size (includes targeted exams where dose is matched to clinical indication); or iterative reconstruction. DLP: 1940.68 mGy.cm COMPARISON: 02/17/2020 Severe atrophy LEFT kidney. Mild perinephric stranding RIGHT kidney. There is slight dilatation of th e RIGHT renal pelvis and RIGHT ureter. Suprapubic catheter is present there is diffuse bladder wall t hickening from cystitis. Mild atherosclerosis aorta with no aneurysm. Mild constipation in the visual ized colon. No adenopathy or ascites in the pelvis. Large hydrocele. Soft tissue ulceration in the posterior LEFT pelvis extends through the soft tissues to the LEFT atri um. There is a soft tissue tract. Within the soft tissue track are multiple small foci of air and sof t tissue thickening. Collection containing air measures 4.4 x 4.5 cm. This collection was also presen t on the prior exam. There is sclerosis involving the LEFT ischial tuberosity along with loss of the normal cortex. Probably combination of acute and chronic osteomyelitis. There are multiple small bony fragments extending laterally from the ischium. Similar to the prior study. There are a few lytic ar eas of bone destruction adjacent to the soft tissue and air suggesting an acute process. There is mil d diffuse soft tissue edema around the pelvis. There is increase soft tissue edema involving the glut eus muscles and greatest extending over the LEFT hip. There is an additional soft tissue tract on the RIGHT extending to the greater trochanter which is pr obably a healed ulceration. CT/CT pelvis wo/w con [id number] IMPRESSION: 1. Soft tissue decubitus ulcer tract in the posterior LEFT pelvis extends to t he ischial tuberosity. Tract contains soft tissue thickening with enhancement a nd air. The inflammatory component extends to abut the ischial tuberosity. 2. There are mixed sclerotic and lytic changes involving the LEFT ischial tube rosity. Suspect there is an acute osteomyelitis superimposed on chronic healed osteomyelitis involving the ischial tuberosity. 3. Healed ulcerated tract over the RIGHT pelvis extending to the greater troch anter. 4. Suprapubic catheter with diffuse bladder wall thickening. 5. Severe LEFT renal atrophy.
[2020-07-18 13:27] LABS: Blood Urea Nitrogen 10 mg/dL (8-23); Glomerular Filtration Rate 114.6 mL/min (90-130)
[2020-07-18] MEDS: iohexol 300 mg/mL 100 mL Btl IV (13:48)
[2020-07-18] MEDS: iohexol 300 mg/mL 50 mL Btl PO (14:02)
== END 2020-07-18 12:13 | disposition home or self-care (01) ==
LOC: CT 12:12
PROVIDERS: PCP Family Medicine; Visit Provider Thoracic Surgery (Cardiothoracic Vascular Surgery)
DX: R10.2 Pelvic and perineal pain (principal); L53.9 Erythematous condition, unspecified; E11.622 Type 2 diabetes mellitus with other skin ulcer; L98.499 Non-pressure chronic ulcer of skin of other sites with unspecified severity; N26.1 Atrophy of kidney (terminal)
CPT/HCPCS: 36415; 72194; 82565; 84520

== ENCOUNTER 2020-07-22 13:04 | Outpatient (RCR) | payer MEDICARE, SELFPAY | END 2020-08-02 23:59 | disposition home or self-care (01) | LOC: WOUND 13:04 | PROVIDERS: PCP Family Medicine; Visit Provider Thoracic Surgery (Cardiothoracic Vascular Surgery) | DX: L89.324 Pressure ulcer of left buttock, stage 4 (principal) | CPT/HCPCS: 11042; 87070 ==

== ENCOUNTER 2020-07-29 12:59 | Outpatient (CLI) | payer MEDICARE, SELFPAY | END 2020-07-29 13:00 | disposition home or self-care (01) | LOC: WOUND 13:00 | PROVIDERS: PCP Family Medicine; Visit Provider Thoracic Surgery (Cardiothoracic Vascular Surgery) | DX: L89.324 Pressure ulcer of left buttock, stage 4 (principal) | CPT/HCPCS: 11042 ==

== ENCOUNTER 2020-08-05 13:06 | Outpatient (CLI) | payer MEDICARE, SELFPAY | END 2020-08-05 13:07 | disposition home or self-care (01) | LOC: WOUND 13:07 | PROVIDERS: PCP Family Medicine; Visit Provider Thoracic Surgery (Cardiothoracic Vascular Surgery) | DX: L89.324 Pressure ulcer of left buttock, stage 4 (principal) | CPT/HCPCS: 11042 ==

== ENCOUNTER 2020-08-13 15:56 | Outpatient (RCR) | payer MEDICARE, SELFPAY | END 2020-09-01 23:59 | disposition home or self-care (01) | LOC: TOT 15:56 | PROVIDERS: PCP Family Medicine; Referring Provider Family Medicine; Visit Provider Family Medicine | DX: G82.21 Paraplegia, complete (principal) | CPT/HCPCS: 97166 ==

== ENCOUNTER → 2020-08-20 14:56 | Outpatient (BNVA) | payer MEDICARE, SELFPAY | PROVIDERS: PCP Family Medicine; Visit Provider Student in an Organized Health Care Education/Training Program | DX: M86.9 Osteomyelitis, unspecified (principal); L89.324 Pressure ulcer of left buttock, stage 4 | CPT/HCPCS: 80053; 85025; 85651 ==

== ENCOUNTER 2020-09-09 13:09 | Outpatient (CLI) | payer MEDICARE, SELFPAY | END 2020-09-09 13:10 | disposition home or self-care (01) | LOC: WOUND 13:10 | PROVIDERS: PCP Family Medicine; Visit Provider Thoracic Surgery (Cardiothoracic Vascular Surgery) | DX: L89.324 Pressure ulcer of left buttock, stage 4 (principal) | CPT/HCPCS: 11042 ==

== ENCOUNTER 2020-10-14 13:16 | Outpatient (CLI) | payer OTHER, SELFPAY | END 2020-10-14 13:17 | disposition home or self-care (01) | LOC: WOUND 13:25 | PROVIDERS: PCP Family Medicine; Visit Provider Thoracic Surgery (Cardiothoracic Vascular Surgery) | DX: I96 Gangrene, not elsewhere classified (principal); L89.324 Pressure ulcer of left buttock, stage 4 | CPT/HCPCS: 11042 ==

== ENCOUNTER → 2020-10-21 15:55 | Outpatient (BNVA) | payer OTHER, SELFPAY | PROVIDERS: PCP Family Medicine; Visit Provider Student in an Organized Health Care Education/Training Program | DX: M86.9 Osteomyelitis, unspecified (principal) | CPT/HCPCS: 80053; 85025 ==

== ENCOUNTER 2020-11-11 13:03 | Outpatient (CLI) | payer OTHER, SELFPAY | END 2020-11-11 13:04 | disposition home or self-care (01) | LOC: WOUND 13:03 | PROVIDERS: PCP Family Medicine; Visit Provider Thoracic Surgery (Cardiothoracic Vascular Surgery) | DX: I96 Gangrene, not elsewhere classified (principal); L89.324 Pressure ulcer of left buttock, stage 4 | CPT/HCPCS: 11042 ==

== ENCOUNTER 2020-12-08 21:36 | Emergency (ER) | payer MEDICARE, SELFPAY ==
[2020-12-08 21:39] VITALS: BP 135/73; PULSE 89; RESP 14; TEMP 36.8; O2SAT 97; BMI 29.5
--- NOTE | 2020-12-08 21:50 | W.ED.GENADLT ---
HPI - General Adult General: Chief complaint: General Medical Stated complaint: superpubic tube fell out Time Seen by Provider: 12/08/20 21:37 Source: patient Mode of arrival: ambulatory Limitations: no limitations History of Present Illness: HPI narrative: 60-year-old male who had a Sainz changed out today. He has a suprapubic Sainz. He states that it fell out. I spoke to Dr. Bauer with sending appear to have the no Sainz placed to keep the hole patent. He has no other complaints at this time. Denies any pain anywhere Associated symptoms: Deny chest pain, dyspnea, headache(s), nausea, rash or vomiting Review of Systems Const: Denies: fever(s), chills, body aches or change in appetite Eyes: Denies: blurry vision or eye discomfort ENMT: Denies: throat pain or dental pain Card: Denies: chest pain Resp: Denies: dyspnea GI: Denies: abdominal pain, nausea, vomiting or diarrhea : Denies: dysuria Musc: Denies: neck pain or back pain Skin/Breast: Denies: rash Neuro: Denies: headache(s) Psych: Denies: depression Kevin/Lymph: Denies: easy bruising All/Imm: Denies: urticaria PFSH ED PFSH: Medical History (Updated 12/08/20 @ 22:14 by Kerry Vazquez MD) Chronic retention of urine History of recurrent UTIs Neurogenic bladder Paraplegia, complete -Fall precautions -WC-bound at baseline Rhabdomyolysis Suprapubic catheter Surgical History S/P repair of hydrocele Family History Mother , AT AGE 85 Hypertension Father , AT AGE 74 LEUKEMIA Leukemia Social History Smoking and tobacco status: former smoker Alcohol intake: never Lives independently: No Household members: family Marital status: Current occupational status: disabled History of recent travel: No Physical Exam Const: COMMON NORMALS: no acute distress, patient oriented x3 and healthy appearing HENMT: COMMON NORMALS: normocephalic and atraumatic HEAD & SCALP: normocephalic and atraumatic Eye: COMMON NORMALS: Equal, round and reactive pupils present and EOMs intact bilaterally PUPIL: Yes Equal, round and reactive pupils present Neck/C-Spine: COMMON NORMALS: full ROM and supple Chest: COMMONS NORMALS: normal inspection of the chest and normal palpation of entire chest wall Resp: COMMON NORMALS: normal respiratory effort, No retractions, No use of accessory muscles and clear to auscultation bilaterally AUSCULTATION: clear to auscultation bilaterally Cardio: COMMON NORMALS: regular rate, regular rhythm and No murmurs present (Cardio) RATE: regular rate RHYTHM: regular rhythm GI: COMMON NORMALS: Normal to inspection, nondistended, normoactive bowel sounds present, Soft to palpation, non-tender and no masses PALPATION: Yes Soft to palpation Extremity: COMMON NORMALS: normal to inspection and full ROM Neuro: COMMON NORMALS: patient oriented x3, moves all extremities and no focal motor deficits Psych: COMMON NORMALS: mental status grossly normal, Normal thought process present and cooperative THOUGHT PROCESS: Normal thought process present Skin: COMMON NORMALS: no rashes or lesions noted and no wounds GENERAL SKIN EXAM: no rashes or lesions noted Course Vital Signs: Vital signs: Vital Signs Temperature 98.3 F 12/08/20 21:39 Pulse Rate 89 12/08/20 21:39 Respiratory Rate 14 12/08/20 21:39 Blood Pressure 135/73 12/08/20 21:39 Pulse Oximetry 97 12/08/20 21:39 MDM - General Adult MDM Narrative: Medical decision making narrative: Patient presents here with suprapubic Sainz that it fell out. Was able to replace the suprapubic Sainz with a coud? tip 16 [place] after multiple attempts. Discharge Plan Discharge Patient Disposition: Home Clinical Impression: Suprapubic catheter dysfunction Qualifiers: Encounter type: initial encounter Qualified Code(s): T83.010A - Breakdown (mechanical) of cystostomy catheter, initial encounter Condition: Stable Prescriptions: No Action magnesium L-lactate 84 mg tablet extended release 84 mg PO BID RF: 0 fluticasone propionate [Flonase Allergy Relief] 50 mcg/actuation spray,suspension 2 spray INTRANASAL DAILY Qty: 9.9 RF: 1 betamethasone acet,sod phos [Celestone Soluspan] 6 mg/mL suspension 6 mg IM ONCE Qty: 1 RF: 0 dexamethasone sodium phosphate 4 mg/mL solution 4 mg IM ONCE Qty: 1 RF: 0 meclizine 25 mg tablet 25 mg PO TID PRN (Reason: dizziness) Qty: 30 RF: 0 ascorbate calcium (vitamin C) 500 mg tablet 500 mg PO BID RF: 0 gabapentin 800 mg tablet 800 mg PO TID Qty: 270 RF: 4 glipizide 10 mg tablet extended release 24hr 10 mg PO DAILY Qty: 90 RF: 3 lactulose 10 gram/15 mL solution 30 gm PO BID Qty: 946 RF: 3 metformin 500 mg tablet See Rx Instructions .ROUTE .COMPLEX Qty: 180 RF: 4 metoprolol tartrate 50 mg tablet See Rx Instructions .ROUTE .COMPLEX Qty: 60 RF: 6 venlafaxine 150 mg capsule,extended release 24hr 150 mg PO QDAY Qty: 90 RF: 4 venlafaxine 75 mg capsule,extended release 24hr 75 mg PO QDAY Qty: 90 RF: 4 doxycycline hyclate 100 mg capsule 100 mg PO BID 42 Days Qty: 84 RF: 0 levofloxacin 750 mg tablet 750 mg PO DAILY 42 Days Qty: 42 RF: 0 triamcinolone acetonide 0.1 % cream See Rx Instructions .ROUTE .COMPLEX Qty: 30 RF: 3 lisinopril 10 mg tablet See Rx Instructions .ROUTE .COMPLEX Qty: 30 RF: 5 amlodipine 5 mg tablet See Rx Instructions .ROUTE .COMPLEX Qty: 30 RF: 5 oxybutynin chloride 15 mg tablet extended release 24hr 15 mg PO DAILY Qty: 30 RF: 12 baclofen 10 mg tablet 10 mg PO QID Qty: 120 RF: 3 gabapentin 600 mg tablet See Rx Instructions .ROUTE .COMPLEX Qty: 30 RF: 4 pantoprazole 40 mg tablet,delayed release (DR/EC) See Rx Instructions .ROUTE .COMPLEX Qty: 60 RF: 4 methenamine hippurate 1 gram tablet See Rx Instructions .ROUTE .COMPLEX Qty: 60 RF: 12 atorvastatin 80 mg tablet See Rx Instructions .ROUTE .COMPLEX Qty: 30 RF: 0 potassium chloride 10 mEq capsule, extended release See Rx Instructions .ROUTE .COMPLEX Qty: 30 RF: 0 Discharge Orders: Discharge ED (Routine); Ordered 12/08/20 Ordered By: Kerry Vazquez Referrals: Adolph Bauer MD [Physician] - 1-3 days Jennifer Patel MD [Primary Care Provider] - Discharge Diet: Advance as tolerated Discharge Activity: Resume usual activity Patient Instructions: Sainz Catheter Care Coding Level of Care Code ED Electrician Wiring for Chg Fwd Exam Comprehensive
[2020-12-08 22:37] VITALS: BP 128/75; PULSE 87; RESP 14; TEMP 36.8; O2SAT 97
== END 2020-12-08 22:42 | disposition home or self-care (01) ==
PROVIDERS: Emergency Provider Emergency Medicine; PCP Family Medicine
DX: T83.010A Breakdown (mechanical) of cystostomy catheter, initial encounter (principal); Z87.891 Personal history of nicotine dependence; Z87.440 Personal history of urinary (tract) infections
CPT/HCPCS: 51702; 99282

== ENCOUNTER 2020-12-16 13:38 | Outpatient (CLI) | payer MEDICARE, SELFPAY | END 2020-12-16 13:39 | disposition home or self-care (01) | LOC: WOUND 13:40 | PROVIDERS: PCP Family Medicine; Visit Provider Thoracic Surgery (Cardiothoracic Vascular Surgery) | DX: L89.324 Pressure ulcer of left buttock, stage 4 (principal) | CPT/HCPCS: 11042 ==

== ENCOUNTER → 2020-12-23 14:40 | Outpatient (BNVA) | payer OTHER, SELFPAY | PROVIDERS: PCP Family Medicine; Visit Provider Family Medicine | DX: E78.5 Hyperlipidemia, unspecified (principal); K21.9 Gastro-esophageal reflux disease without esophagitis; I10 Essential (primary) hypertension; E11.9 Type 2 diabetes mellitus without complications; J20.9 Acute bronchitis, unspecified; L89.324 Pressure ulcer of left buttock, stage 4 | CPT/HCPCS: 80053; 80061; 83036; 84443; 85025 ==

== ENCOUNTER 2020-12-24 20:15 | Emergency (ER) | payer OTHER, SELFPAY ==
[2020-12-24 20:50] VITALS: BP 135/80; PULSE 77; RESP 18; TEMP 36.5; O2SAT 98; BMI 29.5
--- NOTE | 2020-12-24 21:34 | W.ED.EXTPRO ---
HPI - Extremity Problem General: Chief complaint: Extremity Injury, Lower Stated complaint: L GREAT TOE INJURY Time Seen by Provider: 12/24/20 21:01 Source: patient and family Mode of arrival: wheelchair Limitations: physical limitation (BLE paralysis from spinal injury 2011) History of Present Illness: HPI Narrative: 60-year-old male patient presents to the emergency department with laceration to the left great toe. He reports was cutting skin from his feet when he cut his toe on accident. 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 He reports is not able to move or feel BLE. Onset (ago): hour(s) (1) Location: left and lower extremity Radiation: none Associated symptoms: Reports no associated symptoms; Deny chest pain, fever(s) or rash Review of Systems General: Reports: 10 or more systems reviewed and unremarkable except in HPI and below Const: Denies: fever(s), chills or diaphoresis Eyes: Denies: blurry vision or eye redness ENMT: Denies: throat pain, dental pain or disequilibrium Card: Denies: chest pain, palpitations or irregular heart rhythm Resp: Denies: dyspnea, productive cough, non-productive cough or wheezing GI: Denies: abdominal pain, nausea or vomiting : Denies: dysuria Musc: Denies: back pain Skin/Breast: Reports: other (Laceration); Denies: rash, pruritus, erythema, skin tenderness or changes in skin color Neuro: Denies: headache(s), weakness in extremities or behavioral changes Psych: Denies: anxiety or depression Kevin/Lymph: Denies: easy bruising PFSH ED PFSH: Medical History (Updated 12/24/20 @ 21:40 by KRISTOPHER Tim) Chronic retention of urine History of recurrent UTIs Neurogenic bladder Paraplegia, complete -Fall precautions -WC-bound at baseline Rhabdomyolysis Suprapubic catheter Surgical History S/P repair of hydrocele Family History Mother , AT AGE 85 Hypertension Father , AT AGE 74 LEUKEMIA Leukemia Social History Smoking and tobacco status: former smoker Alcohol intake: never Lives independently: No Household members: family Marital status: Current occupational status: disabled History of recent travel: No Physical Exam Const: COMMON NORMALS: no acute distress, patient oriented x3, healthy appearing and alert GENERAL APPEARANCE: cooperative, comfortable and well hydrated HENMT: COMMON NORMALS: normocephalic, Normal external nose present and moist oral mucous membranes HEAD & SCALP: normocephalic NOSE: Normal external nose present Eye: COMMON NORMALS: Equal, round and reactive pupils present and EOMs intact bilaterally GENERAL EYE: appearance normal, both eyes and all related structures PUPIL: Yes Equal, round and reactive pupils present Neck/C-Spine: COMMON NORMALS: full ROM and no lymphadenopathy GENERAL: Yes normal visual inspection and Yes trachea midline CERVICAL SPINE: Yes cervical ROM normal Lymph: LYMPHATIC: no lymphadenopathy noted Chest: COMMONS NORMALS: normal inspection of the chest Resp: COMMON NORMALS: normal respiratory effort and clear to auscultation bilaterally AUSCULTATION: clear to auscultation bilaterally Cardio: COMMON NORMALS: regular rhythm, S1 normal heart sound present, S2 normal heart sound present and Peripheral pulses 2+ throughout RHYTHM: regular rhythm HEART SOUNDS: S1 normal heart sound present and S2 normal heart sound present PERIPHERAL PULSES: Peripheral pulses 2+ throughout Extremity: COMMON NORMALS: normal to inspection, capillary refill normal, no clubbing, cyanosis or edema and no pedal edema Neuro: COMMON NORMALS: patient oriented x3 and no focal motor deficits SENSORIUM/ORIENTATION: Yes alert Psych: COMMON NORMALS: mental status grossly normal, Normal thought process present and cooperative ACTIVITY/MOTOR BEHAVIOR: Yes appropriate eye contact THOUGHT PROCESS: Normal thought process present Skin: COMMON NORMALS: no rashes or lesions noted, turgor normal, no petechiae and no mottling GENERAL SKIN EXAM: no rashes or lesions noted, elasticity normal and turgor normal TRAUMA: laceration linear (3 cm laceration left plantar, great toe, 2nd PIP), actively bleeding and involves subcutaneous tissue; no foreign bodies present, does not involve muscle tissue, motor nerve function not intact (Chronic paralysis) and sensation not intact (Chronic paralysis) Procedures Laceration Laceration 1: Site: lower extremity Side (If applicable): left Size (cm): 3 Description: linear Depth: simple, single layer Local Anesthetic: lidocaine 1% Amount of anesthesia used (mL): 4 Pre-repair: wound explored, irrigated extensively and deep structures intact Skin layer closed with: nylon Size (cm): 4-0 Number of sutures: 5 Technique: simple, interrupted Course Vital Signs: Vital signs: Vital Signs Temperature 97.7 F 12/24/20 20:50 Pulse Rate 77 12/24/20 20:50 Respiratory Rate 18 12/24/20 20:50 Blood Pressure 135/80 12/24/20 20:50 Pulse Oximetry 98 12/24/20 20:50 Discharge Plan Discharge Patient Disposition: Home Clinical Impression: Laceration of toe Qualifiers: Encounter type: initial encounter Toe: great toe Damage to nail status: without damage Foreign body presence: without foreign body Laterality: left Qualified Code(s): S91.112A - Laceration without foreign body of left great toe without damage to nail, initial encounter Condition: Stable Prescriptions: No Action magnesium L-lactate 84 mg tablet extended release 84 mg PO BID RF: 0 betamethasone acet,sod phos [Celestone Soluspan] 6 mg/mL suspension 6 mg IM ONCE Qty: 1 RF: 0 dexamethasone sodium phosphate 4 mg/mL solution 4 mg IM ONCE Qty: 1 RF: 0 ascorbate calcium (vitamin C) 500 mg tablet 500 mg PO BID RF: 0 gabapentin 800 mg tablet 800 mg PO TID Qty: 270 RF: 4 glipizide 10 mg tablet extended release 24hr 10 mg PO DAILY Qty: 90 RF: 3 lactulose 10 gram/15 mL solution 30 gm PO BID Qty: 946 RF: 3 metformin 500 mg tablet See Rx Instructions .ROUTE .COMPLEX Qty: 180 RF: 4 venlafaxine 150 mg capsule,extended release 24hr 150 mg PO QDAY Qty: 90 RF: 4 venlafaxine 75 mg capsule,extended release 24hr 75 mg PO QDAY Qty: 90 RF: 4 lactobacillus combination no.8 PO DAILY RF: 0 atorvastatin 80 mg tablet See Rx Instructions .ROUTE .COMPLEX Qty: 90 RF: 2 lisinopril 10 mg tablet See Rx Instructions .ROUTE .COMPLEX Qty: 90 RF: 2 metoprolol tartrate 50 mg tablet See Rx Instructions .ROUTE .COMPLEX Qty: 180 RF: 2 azithromycin [Zithromax Z-Josesito] 250 mg tablet See Rx Instructions PO .COMPLEX Qty: 6 RF: 0 promethazine-DM 6.25-15 mg/5 mL syrup 5 ml PO Q6H PRN (Reason: cough) Qty: 160 RF: 0 hydrocodone-acetaminophen 7.5-325 mg tablet 1 tab PO Q6H PRN (Reason: pain) 10 Days Qty: 30 RF: 0 triamcinolone acetonide 0.1 % cream See Rx Instructions .ROUTE .COMPLEX Qty: 30 RF: 3 amlodipine 5 mg tablet See Rx Instructions .ROUTE .COMPLEX Qty: 30 RF: 5 oxybutynin chloride 15 mg tablet extended release 24hr 15 mg PO DAILY Qty: 30 RF: 12 baclofen 10 mg tablet 10 mg PO QID Qty: 120 RF: 3 gabapentin 600 mg tablet See Rx Instructions .ROUTE .COMPLEX Qty: 30 RF: 4 pantoprazole 40 mg tablet,delayed release (DR/EC) See Rx Instructions .ROUTE .COMPLEX Qty: 60 RF: 4 methenamine hippurate 1 gram tablet See Rx Instructions .ROUTE .COMPLEX Qty: 60 RF: 12 potassium chloride 10 mEq capsule, extended release See Rx Instructions .ROUTE .COMPLEX Qty: 30 RF: 0 Discharge Orders: Discharge ED (Routine); Ordered 12/24/20 Ordered By: Reba Rao Referrals: Jennifer Patel MD [Primary Care Provider] - Discharge Diet: Usual diet Discharge Activity: Limit activity as instructed Patient Instructions: Diphtheria/Acellular Pertussis/Tetanus Booster Vaccine (Tdap) (Injection), Suture Care (ED), Laceration (ED), Opioid Safety Activity Restrictions/Additional Instructions: Sutures out in 7 to 10 days, may follow-up with your primary care provider Return to the emergency department immediately if you develop redness or swelling, foul odor of the suture site May cleanse with soap and water gently once daily, do not apply pressure to the sutures until removed Coding Level of Care Code ED Booth Supervisor for [facility] Fwd Exam Comprehensive
[2020-12-24] MEDS: tetanus-dipt-pertussis 0.5 mL SDV IM (22:02)
[2020-12-24] MEDS: lidocaine 1% INJ 20 mL INJECTION (22:04)
== END 2020-12-24 22:08 | disposition home or self-care (01) ==
PROVIDERS: Emergency Provider Nurse Practitioner Family; PCP Family Medicine
DX: S91.112A Laceration without foreign body of left great toe without damage to nail, initial encounter (principal); Z87.891 Personal history of nicotine dependence; W45.8XXA Other foreign body or object entering through skin, initial encounter; Z23 Encounter for immunization
CPT/HCPCS: 12002; 90471; 90715; 99282

== ENCOUNTER 2021-01-13 14:38 | Outpatient (CLI) | payer OTHER, SELFPAY | END 2021-01-13 14:39 | disposition home or self-care (01) | LOC: WOUND 14:39 | PROVIDERS: PCP Family Medicine; Visit Provider Thoracic Surgery (Cardiothoracic Vascular Surgery) | DX: L89.324 Pressure ulcer of left buttock, stage 4 (principal) | CPT/HCPCS: 11042 ==

== ENCOUNTER 2021-02-10 13:05 | Outpatient (CLI) | payer MEDICARE, SELFPAY | END 2021-02-10 13:06 | disposition home or self-care (01) | LOC: WOUND 13:07 | PROVIDERS: PCP Family Medicine; Visit Provider Thoracic Surgery (Cardiothoracic Vascular Surgery) | DX: L89.324 Pressure ulcer of left buttock, stage 4 (principal) | CPT/HCPCS: 11044 ==

== ENCOUNTER 2021-03-17 12:59 | Outpatient (CLI) | payer MEDICARE, SELFPAY | END 2021-03-17 13:00 | disposition home or self-care (01) | LOC: WOUND 13:00 | PROVIDERS: PCP Family Medicine; Visit Provider Thoracic Surgery (Cardiothoracic Vascular Surgery) | DX: L89.324 Pressure ulcer of left buttock, stage 4 (principal) | CPT/HCPCS: 97597 ==

== ENCOUNTER 2021-04-07 14:35 | Outpatient (CLI) | payer OTHER, SELFPAY | END 2021-04-07 14:36 | disposition home or self-care (01) | LOC: WOUND 14:36 | PROVIDERS: PCP Family Medicine; Visit Provider Thoracic Surgery (Cardiothoracic Vascular Surgery) | DX: L89.324 Pressure ulcer of left buttock, stage 4 (principal); M86.9 Osteomyelitis, unspecified; R50.9 Fever, unspecified | CPT/HCPCS: 80053; 85025; 85651; 86140; 86618; 86666; 86757; 87040; 87070; 97597 ==

== ENCOUNTER 2021-04-28 12:28 | Outpatient (CLI) | payer MEDICARE, SELFPAY ==
--- NOTE | 2021-04-28 12:39 | CT_ITS ---
WS: [id number] Exam: CT pelvis w con* [id number] Date/Time of Exam: 04/28/2021 12:45 PM Reason For Exam: follow up on bony changes DLP: 1432.[address] scans at [facility] use at least one of these dose optimization techniques: automat ed exposure control; mA and/or kV adjustment per patient size (includes targeted exams where dose is matched to clinical indication); or iterative reconstruction. Comparison 07/18/2020. The pelvis is evaluated in the axial plane with coronal and sagittal reformatted images. Intravenous contrast was administered. A chronic abscess with the gas and a small amount of fluid is noted abutting the left ischio tuberosi ty with the fistulous track extending posteriorly just below the left gluteal fold. There is bony scl erosis of the left initial tuberosity likely indicating chronic osteomyelitis. The abscess cavity nayeli sures approximately 5.4 x 5.4 x 1.7 cm. No other sign of abscess was noted. No mass or adenopathy wit hin the pelvis. Marked atrophy of the visualized lower pole left kidney. Marked wall thickening of th e urinary bladder which might represent chronic cystitis. Suprapubic catheter noted in the bladder in satisfactory position. The remaining bony pelvis is unremarkable CT/CT pelvis w con* [id number] IMPRESSION: 1. Chronic abscess with gas and small amount of fluid abutting the posterior ma rgin of the left initial tuberosity with fistulous track extending posteriorly to the skin surface just below the left gluteal fold. The cavity measures 5.4 x 5.4 x 1.7 cm. There is bony sclerosis of the left initial tuberosity likely in dicating chronic osteomyelitis. The appearance is stable since the prior exam. 2. Suprapubic catheter extending into the urinary bladder. Marked wall thickeni ng of the bladder which might indicate chronic cystitis versus underdistention of the bladder. Atrophy of the visualized lower pole the left kidney.
[2021-04-28] MEDS: iohexol 300 mg/mL 100 mL Btl IV (13:01)
== END 2021-04-28 12:29 | disposition home or self-care (01) ==
PROVIDERS: PCP Family Medicine; Visit Provider Student in an Organized Health Care Education/Training Program
DX: M86.9 Osteomyelitis, unspecified (principal); Z96.0 Presence of urogenital implants; N26.1 Atrophy of kidney (terminal)
CPT/HCPCS: 72193; Q9967

== ENCOUNTER 2021-05-05 13:55 | Outpatient (CLI) | payer MEDICARE, SELFPAY | END 2021-05-05 13:56 | disposition home or self-care (01) | LOC: WOUND 13:55 | PROVIDERS: PCP Family Medicine; Visit Provider Thoracic Surgery (Cardiothoracic Vascular Surgery) | DX: L89.324 Pressure ulcer of left buttock, stage 4 (principal); T24.201A Burn of second degree of unspecified site of right lower limb, except ankle and foot, initial encounter; X10.0XXA Contact with hot drinks, initial encounter; Z87.891 Personal history of nicotine dependence | CPT/HCPCS: 11042; 97597; 97598; A6446 ==

== ENCOUNTER 2021-05-19 12:59 | Outpatient (CLI) | payer SELFPAY | END 2021-05-19 13:00 | disposition home or self-care (01) | LOC: WOUND 13:00 | PROVIDERS: PCP Family Medicine; Visit Provider Thoracic Surgery (Cardiothoracic Vascular Surgery) | DX: L89.324 Pressure ulcer of left buttock, stage 4 (principal); E11.622 Type 2 diabetes mellitus with other skin ulcer; L97.812 Non-pressure chronic ulcer of other part of right lower leg with fat layer exposed; Z87.891 Personal history of nicotine dependence | CPT/HCPCS: 11042; 97597; 97598 ==

== ENCOUNTER → 2021-05-29 12:07 | Outpatient (BNVA) | payer MEDICARE, SELFPAY | PROVIDERS: PCP Family Medicine; Visit Provider Student in an Organized Health Care Education/Training Program | DX: E11.9 Type 2 diabetes mellitus without complications (principal); I10 Essential (primary) hypertension; E78.5 Hyperlipidemia, unspecified; M86.9 Osteomyelitis, unspecified | CPT/HCPCS: 80053; 80061; 83036; 85025; 85651; 86140 ==

== ENCOUNTER 2021-06-02 13:04 | Outpatient (CLI) | payer OTHER, SELFPAY | END 2021-06-02 13:05 | disposition home or self-care (01) | LOC: WOUND 13:06 | PROVIDERS: PCP Family Medicine; Visit Provider Thoracic Surgery (Cardiothoracic Vascular Surgery) | DX: I96 Gangrene, not elsewhere classified (principal); L89.324 Pressure ulcer of left buttock, stage 4; T24.231A Burn of second degree of right lower leg, initial encounter; X10.0XXA Contact with hot drinks, initial encounter; Y93.9 Activity, unspecified; Z87.891 Personal history of nicotine dependence | CPT/HCPCS: 11042; 97597; A6446 ==

== ENCOUNTER 2021-07-01 14:30 | Outpatient (CLI) | payer OTHER, SELFPAY | END 2021-07-01 14:31 | disposition home or self-care (01) | LOC: WOUND 14:32 | PROVIDERS: PCP Family Medicine; Visit Provider Thoracic Surgery (Cardiothoracic Vascular Surgery) | DX: I96 Gangrene, not elsewhere classified (principal); L89.324 Pressure ulcer of left buttock, stage 4; L97.812 Non-pressure chronic ulcer of other part of right lower leg with fat layer exposed; Z87.891 Personal history of nicotine dependence | CPT/HCPCS: 11042; 87070; 87077; 87186; 97597 ==

== ENCOUNTER 2021-07-14 09:51 | Outpatient (CLI) | payer OTHER, SELFPAY | END 2021-07-14 09:52 | disposition home or self-care (01) | LOC: WOUND 09:52 | PROVIDERS: PCP Family Medicine; Visit Provider Thoracic Surgery (Cardiothoracic Vascular Surgery) | DX: I96 Gangrene, not elsewhere classified (principal); L89.324 Pressure ulcer of left buttock, stage 4; L97.812 Non-pressure chronic ulcer of other part of right lower leg with fat layer exposed; Z87.891 Personal history of nicotine dependence | CPT/HCPCS: 11042; 80053; 85025; 85651; 86140; 97597; A6446 ==

== ENCOUNTER 2021-08-18 13:03 | Outpatient (RCR) | payer OTHER, SELFPAY | END 2021-09-01 23:59 | disposition home or self-care (01) | LOC: WOUND 13:03 | PROVIDERS: PCP Family Medicine; Visit Provider Thoracic Surgery (Cardiothoracic Vascular Surgery) | DX: L89.324 Pressure ulcer of left buttock, stage 4 (principal); L89.222 Pressure ulcer of left hip, stage 2; T24.201A Burn of second degree of unspecified site of right lower limb, except ankle and foot, initial encounter; X08.8XXA Exposure to other specified smoke, fire and flames, initial encounter; E11.9 Type 2 diabetes mellitus without complications; I10 Essential (primary) hypertension; Z87.891 Personal history of nicotine dependence | CPT/HCPCS: 97597; A6021; A6446 ==

== ENCOUNTER → 2021-08-25 12:44 | Outpatient (BNVA) | payer OTHER, SELFPAY | PROVIDERS: PCP Family Medicine; Visit Provider Student in an Organized Health Care Education/Training Program | DX: M86.9 Osteomyelitis, unspecified (principal) | CPT/HCPCS: 85651; 86140 ==

== ENCOUNTER → 2021-09-01 15:21 | Outpatient (BNVA) | payer OTHER, SELFPAY | PROVIDERS: PCP Family Medicine; Visit Provider Family Medicine | DX: E78.5 Hyperlipidemia, unspecified (principal); K21.9 Gastro-esophageal reflux disease without esophagitis; F41.9 Anxiety disorder, unspecified; I10 Essential (primary) hypertension; E11.9 Type 2 diabetes mellitus without complications; R33.9 Retention of urine, unspecified | CPT/HCPCS: 80053; 80061; 83036; 84443; 85025 ==

== ENCOUNTER 2021-09-15 13:10 | Outpatient (CLI) | payer OTHER, SELFPAY | END 2021-09-15 13:11 | disposition home or self-care (01) | LOC: WOUND 13:11 | PROVIDERS: PCP Family Medicine; Visit Provider Thoracic Surgery (Cardiothoracic Vascular Surgery) | DX: I96 Gangrene, not elsewhere classified (principal); L89.324 Pressure ulcer of left buttock, stage 4; L89.222 Pressure ulcer of left hip, stage 2; Z87.891 Personal history of nicotine dependence | CPT/HCPCS: 11042; 97597; A6446 ==

== ENCOUNTER 2021-11-09 13:40 | Outpatient (CLI) | payer MEDICARE, OTHER, SELFPAY | END 2021-11-09 13:41 | disposition home or self-care (01) | LOC: WOUND 13:40 | PROVIDERS: PCP Family Medicine; Visit Provider Thoracic Surgery (Cardiothoracic Vascular Surgery) | DX: I96 Gangrene, not elsewhere classified (principal); L89.222 Pressure ulcer of left hip, stage 2; L97.324 Non-pressure chronic ulcer of left ankle with necrosis of bone; Z87.891 Personal history of nicotine dependence | CPT/HCPCS: 11042; 11043; 87070; 87077; 87176; 87186; 87205; A6446 ==

== ENCOUNTER 2021-11-23 13:08 | Outpatient (CLI) | payer MEDICARE, OTHER, SELFPAY | END 2021-11-23 13:09 | disposition home or self-care (01) | LOC: WOUND 13:43 | PROVIDERS: PCP Family Medicine; Visit Provider Thoracic Surgery (Cardiothoracic Vascular Surgery) | DX: L89.324 Pressure ulcer of left buttock, stage 4 (principal); L89.892 Pressure ulcer of other site, stage 2; Z87.891 Personal history of nicotine dependence | CPT/HCPCS: 11042; 11043; A6446 ==

== ENCOUNTER 2022-01-26 12:28 | Outpatient (CLI) | payer OTHER, SELFPAY ==
[2022-01-26 13:42] LABS: White Blood Count 15.7 10^3/uL (4.0-10.0)
[2022-01-26 13:47] LABS: Erythrocyte Sedimentation Rate 34 mm/hr (0-10)
--- NOTE | 2022-01-26 14:00 | CT_ITS ---
WS: [id number] CT PELVIS WITH CONTRAST. HISTORY: follow up chronic osteomyelitis TECHNIQUE: Contiguous imaging is performed of the pelvis with contrast. Coronal and sagittal reformat s are reviewed. All CT scans at [facility] use at least one of these dose optimization techni ques: automated exposure control; mA and/or kV adjustment per patient size (includes targeted exams w here dose is matched to clinical indication); or iterative reconstruction. Contrast: Omnipaque 300; 95 mL IV DLP: 1065.13 mGy.cm COMPARISON: 04/28/2021 There is a large superficial soft tissue ulceration just lateral to the LEFT greater trochanter. The ulceration measures 3.8 x 2.9 cm. Just deep to the ulceration is an ill-defined fluid collection abut ting the greater trochanter. This fluid collection measures 6.0 x 7.6 cm and does continue from the s oft tissue ulceration. There is extensive additional soft tissue stranding and induration surrounding the LEFT hip. There is thickening and enlargement of the LEFT gluteus tesfaye. There is a focal air- containing collection in the posterior pelvis closely associated with the LEFT ischial tuberosity. Th is collection was described on the prior study and not significantly changed. The adjacent LEFT ischi um is sclerotic and dense suggesting this is a healed or chronic osteomyelitis. Acute component not c ompletely excluded as the infectious process containing air does abut the tuberosity. There is a large amount of fluid in the scrotal sac. Suprapubic catheter remains in place in a nondis tended bladder. CT/CT pelvis w con* [id number] IMPRESSION: 1. Large soft tissue ulceration is new just lateral to the LEFT greater trocha nter. The ulceration measures 3.8 x 2.9 cm. 2. Contiguous with the LEFT hip ulceration is a fluid collection with thick wa lled consistent with an abscess abutting the LEFT greater trochanter. Collectio n measures 6.0 x 7.6 cm. 3. Again noted is a more chronic appearing soft tissue abscess posterior to th e LEFT ischial tuberosity containing air with a fistulous tract extending poste riorly. 4. LEFT ischial tuberosity sclerosis is probably secondary to healed osteomyel itis. As the infection is very close to the ischial tuberosity chronic osteomye litis should be considered also.
[2022-01-26 14:04] LABS: Blood Urea Nitrogen 6 mg/dL (8-23)
[2022-01-26] MEDS: iohexol 300 mg/mL 100 mL Btl IV (14:06)
[2022-01-26 14:13] LABS: C Reactive Protein 45.7 mg/L (0.0-4.9)
== END 2022-01-26 12:29 | disposition home or self-care (01) ==
LOC: RAD 12:30
PROVIDERS: PCP Family Medicine; Visit Provider Student in an Organized Health Care Education/Training Program
DX: M86.9 Osteomyelitis, unspecified (principal); K04.6 Periapical abscess with sinus
CPT/HCPCS: 36415; 72193; 82565; 84520; 85048; 85651; 86140

== ENCOUNTER → 2022-03-02 14:09 | Outpatient (BNVA) | payer OTHER, SELFPAY | PROVIDERS: PCP Family Medicine; Visit Provider Family Medicine | DX: E11.9 Type 2 diabetes mellitus without complications (principal); I10 Essential (primary) hypertension; E78.5 Hyperlipidemia, unspecified; G82.21 Paraplegia, complete; L89.324 Pressure ulcer of left buttock, stage 4 | CPT/HCPCS: 80053; 80061; 83036; 84443; 85025 ==

== ENCOUNTER → 2022-05-12 13:52 | Outpatient (BNVA) | payer OTHER, SELFPAY | PROVIDERS: PCP Family Medicine; Visit Provider Thoracic Surgery (Cardiothoracic Vascular Surgery) | DX: Z01.89 Encounter for other specified special examinations (principal) | CPT/HCPCS: 87070; 87176; 87205 ==

== ENCOUNTER → 2022-10-19 17:37 | Outpatient (BNVA) | payer OTHER, SELFPAY | PROVIDERS: PCP Family Medicine; Visit Provider Family Medicine | DX: E11.9 Type 2 diabetes mellitus without complications (principal); I10 Essential (primary) hypertension; K21.9 Gastro-esophageal reflux disease without esophagitis; E78.5 Hyperlipidemia, unspecified; D50.9 Iron deficiency anemia, unspecified; Z12.5 Encounter for screening for malignant neoplasm of prostate | CPT/HCPCS: 80053; 80061; 83036; 83540; 84443; 85025; G0103 ==

== ENCOUNTER → 2023-01-05 16:34 | Outpatient (BNVA) | payer OTHER, SELFPAY | PROVIDERS: PCP Family Medicine; Visit Provider Thoracic Surgery (Cardiothoracic Vascular Surgery) | DX: I96 Gangrene, not elsewhere classified (principal); L89.324 Pressure ulcer of left buttock, stage 4; L89.224 Pressure ulcer of left hip, stage 4; L89.312 Pressure ulcer of right buttock, stage 2; E11.622 Type 2 diabetes mellitus with other skin ulcer; L97.812 Non-pressure chronic ulcer of other part of right lower leg with fat layer exposed; L97.822 Non-pressure chronic ulcer of other part of left lower leg with fat layer exposed; L98.492 Non-pressure chronic ulcer of skin of other sites with fat layer exposed | CPT/HCPCS: 87070; 87077; 87176; 87186; 87205 ==

== ENCOUNTER → 2023-02-09 13:09 | Outpatient (BNVA) | payer MEDICARE, SELFPAY | PROVIDERS: PCP Family Medicine; Visit Provider Thoracic Surgery (Cardiothoracic Vascular Surgery) | DX: I96 Gangrene, not elsewhere classified (principal); L89.892 Pressure ulcer of other site, stage 2; L89.324 Pressure ulcer of left buttock, stage 4; L89.224 Pressure ulcer of left hip, stage 4; L89.312 Pressure ulcer of right buttock, stage 2; Z09 Encounter for follow-up examination after completed treatment for conditions other than malignant neoplasm | CPT/HCPCS: 11042; 11044; 11047; 87070; 87077; 87176; 87186; 87205; A6446 ==

== ENCOUNTER → 2023-02-16 13:17 | Outpatient (BNVA) | payer MEDICARE, SELFPAY | PROVIDERS: PCP Family Medicine; Visit Provider Urology | DX: Z93.59 Other cystostomy status (principal); R33.9 Retention of urine, unspecified; L97.822 Non-pressure chronic ulcer of other part of left lower leg with fat layer exposed; L97.812 Non-pressure chronic ulcer of other part of right lower leg with fat layer exposed | CPT/HCPCS: 11042; 11043; 11046; 51705; 97605; A6446 ==

== ENCOUNTER → 2023-02-23 12:58 | Outpatient (BNVA) | payer MEDICARE, SELFPAY | PROVIDERS: PCP Family Medicine; Visit Provider Thoracic Surgery (Cardiothoracic Vascular Surgery) | DX: I96 Gangrene, not elsewhere classified (principal); L89.224 Pressure ulcer of left hip, stage 4; L89.324 Pressure ulcer of left buttock, stage 4; L89.312 Pressure ulcer of right buttock, stage 2 | CPT/HCPCS: 11042; 11044; 11047; 97605; A6237 ==

== ENCOUNTER → 2023-03-09 13:05 | Outpatient (BNVA) | payer MEDICARE, SELFPAY | PROVIDERS: PCP Family Medicine; Visit Provider Thoracic Surgery (Cardiothoracic Vascular Surgery) | DX: I96 Gangrene, not elsewhere classified (principal); L89.324 Pressure ulcer of left buttock, stage 4; L89.224 Pressure ulcer of left hip, stage 4; L89.314 Pressure ulcer of right buttock, stage 4 | CPT/HCPCS: 11042; 11045; 97605; A6237; A6250 ==

== ENCOUNTER → 2023-03-23 10:38 | Outpatient (BNVA) | payer MEDICARE, SELFPAY | PROVIDERS: PCP Family Medicine; Visit Provider Urology | DX: R33.9 Retention of urine, unspecified (principal); L89.322 Pressure ulcer of left buttock, stage 2; L89.222 Pressure ulcer of left hip, stage 2 | CPT/HCPCS: 11042; 51705; 97597; A6237; A6250; A6446 ==

== ENCOUNTER → 2023-04-06 12:51 | Outpatient (BNVA) | payer MEDICARE, SELFPAY | PROVIDERS: PCP Family Medicine; Visit Provider Thoracic Surgery (Cardiothoracic Vascular Surgery) | DX: I96 Gangrene, not elsewhere classified (principal); L89.324 Pressure ulcer of left buttock, stage 4; L89.224 Pressure ulcer of left hip, stage 4; L89.314 Pressure ulcer of right buttock, stage 4 | CPT/HCPCS: 11042; 11045; 87070; 87077; 87176; 87186; 87205; A6237; A6250; A6446 ==

== ENCOUNTER → 2023-04-13 13:36 | Outpatient (BNVA) | payer MEDICARE, SELFPAY | PROVIDERS: PCP Family Medicine; Visit Provider Thoracic Surgery (Cardiothoracic Vascular Surgery) | DX: I96 Gangrene, not elsewhere classified (principal); L89.324 Pressure ulcer of left buttock, stage 4; L89.224 Pressure ulcer of left hip, stage 4; L89.314 Pressure ulcer of right buttock, stage 4 | CPT/HCPCS: 11042; 11045; 97597; A6237; A6250; A6446 ==

== ENCOUNTER → 2023-04-27 12:58 | Outpatient (BNVA) | payer MEDICARE, SELFPAY | PROVIDERS: PCP Family Medicine; Visit Provider Thoracic Surgery (Cardiothoracic Vascular Surgery) | DX: I96 Gangrene, not elsewhere classified (principal); L89.324 Pressure ulcer of left buttock, stage 4; L89.224 Pressure ulcer of left hip, stage 4; L89.314 Pressure ulcer of right buttock, stage 4 | CPT/HCPCS: 11042; 11045; 97605; A6237; A6250; A6446 ==

== ENCOUNTER → 2023-05-18 12:57 | Outpatient (BNVA) | payer MEDICARE, SELFPAY | PROVIDERS: PCP Family Medicine; Visit Provider Thoracic Surgery (Cardiothoracic Vascular Surgery) | DX: I96 Gangrene, not elsewhere classified (principal); L89.324 Pressure ulcer of left buttock, stage 4; L89.224 Pressure ulcer of left hip, stage 4; L89.314 Pressure ulcer of right buttock, stage 4 | CPT/HCPCS: 11042; 11045; A6237; A6250 ==

== ENCOUNTER → 2023-05-19 16:57 | Outpatient (BNVA) | payer MEDICARE, SELFPAY | PROVIDERS: PCP Family Medicine; Visit Provider Family Medicine | DX: D50.9 Iron deficiency anemia, unspecified (principal); E11.9 Type 2 diabetes mellitus without complications; E78.5 Hyperlipidemia, unspecified; I10 Essential (primary) hypertension; F41.9 Anxiety disorder, unspecified; N31.9 Neuromuscular dysfunction of bladder, unspecified; Z93.59 Other cystostomy status; K21.9 Gastro-esophageal reflux disease without esophagitis | CPT/HCPCS: 80053; 80061; 83036; 84443; 85025 ==

== ENCOUNTER → 2023-06-01 12:53 | Outpatient (BNVA) | payer MEDICARE, SELFPAY | PROVIDERS: PCP Family Medicine; Visit Provider Thoracic Surgery (Cardiothoracic Vascular Surgery) | DX: L89.324 Pressure ulcer of left buttock, stage 4 (principal); L89.224 Pressure ulcer of left hip, stage 4; L89.314 Pressure ulcer of right buttock, stage 4 | CPT/HCPCS: 11042; 97597; A6446 ==

== ENCOUNTER → 2023-06-08 13:00 | Outpatient (BNVA) | payer MEDICARE, SELFPAY | PROVIDERS: PCP Family Medicine; Visit Provider Thoracic Surgery (Cardiothoracic Vascular Surgery) | DX: L89.324 Pressure ulcer of left buttock, stage 4 (principal); L89.224 Pressure ulcer of left hip, stage 4; L89.314 Pressure ulcer of right buttock, stage 4 | CPT/HCPCS: 11042; 97597; A6237; A6250 ==

== ENCOUNTER → 2023-06-29 13:01 | Outpatient (BNVA) | payer MEDICARE, SELFPAY | PROVIDERS: PCP Family Medicine; Visit Provider Thoracic Surgery (Cardiothoracic Vascular Surgery) | DX: I96 Gangrene, not elsewhere classified (principal); L89.324 Pressure ulcer of left buttock, stage 4; L89.224 Pressure ulcer of left hip, stage 4; L89.314 Pressure ulcer of right buttock, stage 4 | CPT/HCPCS: 11042; 97597 ==

== ENCOUNTER → 2023-07-13 13:02 | Outpatient (BNVA) | payer MEDICARE, SELFPAY | PROVIDERS: PCP Family Medicine; Visit Provider Thoracic Surgery (Cardiothoracic Vascular Surgery) | DX: L89.324 Pressure ulcer of left buttock, stage 4 (principal); L89.224 Pressure ulcer of left hip, stage 4; L89.314 Pressure ulcer of right buttock, stage 4 | CPT/HCPCS: 11042; 87070; 87176; 87205; 97597; A6237 ==

== ENCOUNTER → 2023-07-27 12:57 | Outpatient (BNVA) | payer MEDICARE, SELFPAY | PROVIDERS: PCP Family Medicine; Visit Provider Nurse Practitioner Family | DX: I96 Gangrene, not elsewhere classified (principal); L89.324 Pressure ulcer of left buttock, stage 4; L89.224 Pressure ulcer of left hip, stage 4; L89.314 Pressure ulcer of right buttock, stage 4 | CPT/HCPCS: 11042; 11045; 97605; A6237; A6250; A6446 ==

== ENCOUNTER → 2023-08-10 13:06 | Outpatient (BNVA) | payer MEDICARE, SELFPAY | PROVIDERS: PCP Family Medicine; Visit Provider Thoracic Surgery (Cardiothoracic Vascular Surgery) | DX: I96 Gangrene, not elsewhere classified (principal); L89.324 Pressure ulcer of left buttock, stage 4; L89.224 Pressure ulcer of left hip, stage 4; L89.314 Pressure ulcer of right buttock, stage 4 | CPT/HCPCS: 11042; 97597; 97605; A6237; A6250 ==

== ENCOUNTER → 2023-08-24 13:05 | Outpatient (BNVA) | payer MEDICARE, SELFPAY | PROVIDERS: PCP Family Medicine; Visit Provider Thoracic Surgery (Cardiothoracic Vascular Surgery) | DX: I96 Gangrene, not elsewhere classified (principal); L89.324 Pressure ulcer of left buttock, stage 4; L89.314 Pressure ulcer of right buttock, stage 4; L89.224 Pressure ulcer of left hip, stage 4 | CPT/HCPCS: 97597; 97598; A6237; A6250; A6446 ==

== ENCOUNTER → 2023-09-14 12:56 | Outpatient (BNVA) | payer MEDICARE, SELFPAY | PROVIDERS: PCP Family Medicine; Visit Provider Thoracic Surgery (Cardiothoracic Vascular Surgery) | DX: I96 Gangrene, not elsewhere classified (principal); L89.224 Pressure ulcer of left hip, stage 4; L89.314 Pressure ulcer of right buttock, stage 4; L89.894 Pressure ulcer of other site, stage 4 | CPT/HCPCS: 11042; 87070; 97597; 97598; 97605; A6237; A6250 ==

== ENCOUNTER → 2023-10-05 11:02 | Outpatient (BNVA) | payer MEDICARE, SELFPAY | PROVIDERS: PCP Family Medicine; Visit Provider Thoracic Surgery (Cardiothoracic Vascular Surgery) | DX: I96 Gangrene, not elsewhere classified (principal); L89.224 Pressure ulcer of left hip, stage 4; L89.314 Pressure ulcer of right buttock, stage 4; L89.894 Pressure ulcer of other site, stage 4 | CPT/HCPCS: 11042; 11044; 11047; 87070; 87176; 87186; 87205; A6237; A6250; A6446 ==

== ENCOUNTER → 2023-10-12 12:58 | Outpatient (BNVA) | payer MEDICARE, SELFPAY | PROVIDERS: PCP Family Medicine; Visit Provider Thoracic Surgery (Cardiothoracic Vascular Surgery) | DX: I96 Gangrene, not elsewhere classified (principal); L89.894 Pressure ulcer of other site, stage 4; L89.224 Pressure ulcer of left hip, stage 4; L89.314 Pressure ulcer of right buttock, stage 4 | CPT/HCPCS: 11042; 97597; 97598; A6237; A6250; A6446 ==

== ENCOUNTER → 2023-10-26 10:55 | Outpatient (BNVA) | payer MEDICARE, SELFPAY | PROVIDERS: PCP Family Medicine; Visit Provider Thoracic Surgery (Cardiothoracic Vascular Surgery) | DX: I96 Gangrene, not elsewhere classified (principal); L89.224 Pressure ulcer of left hip, stage 4; L89.214 Pressure ulcer of right hip, stage 4; L89.314 Pressure ulcer of right buttock, stage 4 | CPT/HCPCS: 11042; 97597; 97598; 97605; A6237; A6250; A6446 ==

== ENCOUNTER → 2023-11-09 12:55 | Outpatient (BNVA) | payer MEDICARE, SELFPAY | PROVIDERS: PCP Family Medicine; Visit Provider Thoracic Surgery (Cardiothoracic Vascular Surgery) | DX: L89.224 Pressure ulcer of left hip, stage 4 (principal); L89.314 Pressure ulcer of right buttock, stage 4; L89.894 Pressure ulcer of other site, stage 4 | CPT/HCPCS: 97597; 97598; A6446 ==

== ENCOUNTER → 2023-11-15 15:09 | Outpatient (BNVA) | payer MEDICARE, SELFPAY | PROVIDERS: PCP Family Medicine; Visit Provider Family Medicine | DX: L89.324 Pressure ulcer of left buttock, stage 4 (principal); G82.21 Paraplegia, complete; E78.5 Hyperlipidemia, unspecified; I10 Essential (primary) hypertension; E11.9 Type 2 diabetes mellitus without complications; Z12.5 Encounter for screening for malignant neoplasm of prostate; F41.9 Anxiety disorder, unspecified | CPT/HCPCS: 80053; 80061; 83036; 84443; 85025; G0103 ==

== ENCOUNTER → 2023-12-07 12:59 | Outpatient (BNVA) | payer MEDICARE, SELFPAY | PROVIDERS: PCP Family Medicine; Visit Provider Thoracic Surgery (Cardiothoracic Vascular Surgery) | DX: I96 Gangrene, not elsewhere classified (principal); L89.224 Pressure ulcer of left hip, stage 4; L89.314 Pressure ulcer of right buttock, stage 4; L89.324 Pressure ulcer of left buttock, stage 4 | CPT/HCPCS: 87070; 87077; 87176; 87186; 87205; 97597; 97598; A6446 ==

== ENCOUNTER → 2023-12-22 13:00 | Outpatient (BNVA) | payer MEDICARE, SELFPAY | PROVIDERS: PCP Family Medicine; Visit Provider Thoracic Surgery (Cardiothoracic Vascular Surgery) | DX: L89.224 Pressure ulcer of left hip, stage 4 (principal); L89.314 Pressure ulcer of right buttock, stage 4; L89.894 Pressure ulcer of other site, stage 4 | CPT/HCPCS: 97597; 97598 ==

== ENCOUNTER → 2024-01-25 12:53 | Outpatient (BNVA) | payer MEDICARE, SELFPAY | PROVIDERS: PCP Family Medicine; Visit Provider Thoracic Surgery (Cardiothoracic Vascular Surgery) | DX: I96 Gangrene, not elsewhere classified (principal); L89.224 Pressure ulcer of left hip, stage 4; L89.894 Pressure ulcer of other site, stage 4; L89.314 Pressure ulcer of right buttock, stage 4 | CPT/HCPCS: 97597; 97598; A6446 ==

== ENCOUNTER → 2024-04-26 16:54 | Outpatient (BNVA) | payer MEDICARE, SELFPAY | PROVIDERS: PCP Family Medicine; Visit Provider Family Medicine | DX: L89.324 Pressure ulcer of left buttock, stage 4 (principal); E11.9 Type 2 diabetes mellitus without complications; E78.5 Hyperlipidemia, unspecified; I10 Essential (primary) hypertension; F41.9 Anxiety disorder, unspecified; K21.9 Gastro-esophageal reflux disease without esophagitis | CPT/HCPCS: 80053; 80061; 83036; 84443; 85025 ==